=== PATIENT | female | born 1965 | race Hispanic/Latino ===

== ENCOUNTER 2016-07-16 20:45 | Emergency (ER) | payer MEDICAID, OTHER ==
[2016-07-16 20:58] VITALS: BP 129/81
--- NOTE | 2016-07-16 21:14 | EDM.PDOC ---
ED HISTORY OF PRESENT ILLNESS - General Chief Complaint: Chest Pain Stated Complaint: COUGH/CONGESTION Time Seen by Provider: 07/16/16 21:06 - History of Present Illness INITIAL COMMENTS - FREE TEXT/NARRATIVE: 51-year-old female presents emergency room with chest pain. This pain has been on-and-off for the last 3-4 days. The patient developed a cough prior to developing the chest pain and the cough certainly makes her chest pain worse. The patient has not had any fevers or chills. The patient does have history of atherosclerotic cardiovascular disease she has [address] Patient has nitroglycerin at home but has not felt like she needed to try using this to alleviate the chest pain. Chest pain is more right sided hurts with deep breathing and with coughing. The patient has not had any nausea or vomiting no diarrhea no other pains. The patient is pain free at this time. - Related Data Allergies/ADRs: Allergies Allergy/AdvReac Type Severity Reaction Status Date / Time No Known Allergies Allergy Verified 07/16/16 20:58 Home Meds: Home Meds Clopidogrel [Plavix] 75 mg PO DAILY 03/20/15 [History] Metoprolol Tartrate 50 mg PO BID 03/20/15 [History] Nitroglycerin [Nitrostat] 0.4 mg SL Q5M 03/20/15 [History] Simvastatin [Zocor] 80 mg PO BEDTIME 03/20/15 [History] SUMAtriptan [Imitrex] 50 mg PO Q2H PRN 09/04/15 [History] Sertraline [Zoloft] 50 mg PO DAILY 09/04/15 [History] Aspirin [Ecotrin] 325 mg PO DAILY 07/16/16 [History] Hydrochlorothiazide 25 mg PO DAILY 07/16/16 [History] Isosorbide Mononitrate [Isosorbide Mononitrate ER] 30 mg PO DAILY 07/16/16 [ History] Lisinopril 40 mg PO DAILY 07/16/16 [History] Nitroglycerin [Nitrostat] 0.4 mg SL Q5M 07/16/16 [History] Doxycycline Monohydrate 100 mg PO Q12H #14 capsule 07/17/16 [Rx] Past Medical History Cardiovascular History: Reports: CAD, High cholesterol, Hypertension, Stents Gastrointestinal History: Reports: Other (see below) Other Gastrointestinal History: Biliary stones ER RN History: Reports: Psychiatric History: Reports: Addiction - Infectious Disease History Infectious Disease History: Reports: Chicken pox, Measles, Mumps - Past Surgical History Cardiovascular Surgical History: Reports: Coronary artery stent Social & Family History - Family History Family Medical History: Noncontributory - Tobacco Use Smoking Status *Q: Current Every Day Smoker Years of Tobacco use: 45 Packs/Tins Daily: 0.3 - Caffeine Use Caffeine Use: Reports: Coffee - Alcohol Use Days Per Week of Alcohol Use: 1 Number of Drinks Per Day: 3 Total Drinks Per Week: 3 - Recreational Drug Use Recreational Drug Use: No Drug Use in Last 12 Months: No Recreational Drug Type: Reports: Heroin, Marijuana/Hashish, Cocaine Recreational Drug Use Frequency: Not Used In Over 6 Months - Living Situation & Occupation Living situation: Reports: single, alone Occupation: employed ED ROS GENERAL - Review of Systems Review Of Systems: See Below Constitutional: Reports: no symptoms HEENT: Reports: Rhinitis Respiratory: Reports: cough, sputum. Denies: shortness of breath, wheezing Cardiovascular: Reports: Chest pain. Denies: Dyspnea on exertion, Edema, Lightheadedness, Palpitations, Syncope Endocrine: Reports: no symptoms GI/Abdominal: Reports: No symptoms : Reports: no symptoms Neurological: Reports: no symptoms ED EXAM, GENERAL - Physical Exam Exam: See Below Exam Limited By: No limitations General Appearance: alert, no apparent distress, other (vital signs stable on telemetry she's having occasional unifocal PVCs) Head: atraumatic, normocephalic Neck: normal inspection, supple, non-tender, full range of motion Respiratory/Chest: no respiratory distress, lungs clear, normal breath sounds Cardiovascular: regular rate, rhythm, no edema, no murmur GI/Abdominal: normal bowel sounds, soft, non tender Back Exam: normal inspection. No: CVA tenderness (L), CVA tenderness (R) Extremities: normal inspection, no pedal edema Neurological: alert, oriented, normal cognition Psychiatric: normal affect, normal mood EKG INTERPRETATION EKG Date: 07/16/16 Rhythm: other (normal sinus rhythm with 2 unifocal PVCs) [place]: normal P-wave: present QRS: normal ST-T: normal QT: normal CT/PQ Interval: first degree AV block Comparison: no change EKG Interpretation Comments: abnormal EKG other than the PVCs no change from July of 2015 Course - Vital Signs Last Recorded V/S: Last Vital Signs Temp 37.3 C 07/16/16 20:53 Pulse 78 07/16/16 20:53 Resp 20 07/16/16 20:53 BP 129/81 07/16/16 20:53 Pulse Ox 97 07/16/16 23:08 - Orders/Labs/Meds Orders: Active Orders 24 hr Category Date Time Status EKG 12 Lead [EKG Documentation Completion] [RC] STAT Care 07/16/16 21:04 Active EKG Documentation Completion [RC] STAT Care 07/16/16 22:14 Active Chest 1V Frontal [CR] Stat Exams 07/16/16 21:10 Taken Doxycycline [Vibramycin] Med 07/16/16 23:58 Once 100 mg PO ONETIME ONE Labs: Laboratory Tests 07/16/16 07/16/16 07/16/16 Range/Units 21:10 21:10 21:10 WBC 15.55 H (3.98-10.04) K/mm3 RBC 4.31 (3.98-5.22) M/mm3 Hgb 13.8 (11.2-15.7) gm/L Hct 40.6 (34.1-44.9) % MCV 94.2 (79.4-94.8) fl MCH 32.0 (25.6-32.2) pg MCHC 34.0 (32.2-35.5) g/dl RDW Std Deviation 45.1 (36.4-46.3) fL Plt Count 356 (182-369) K/mm3 MPV 9.4 (9.4-12.3) fl Neutrophils % (Manual) 73 H (40-60) % Band Neutrophils % 0 (0-10) % Lymphocytes % (Manual) 18 L (20-40) % Atypical Lymphs % 0 % Monocytes % (Manual) 9 (2-10) % Eosinophils % (Manual) 0 L (0.7-5.8) % Basophils % (Manual) 0 L (0.1-1.2) Platelet Estimate Adequate Plt Morphology Comment Normal RBC Morph Comment Normal PT 10.0 (8.0-13.0) SECONDS INR 0.95 APTT 30 (22-36) SECONDS D-Dimer, Quantitative (0.19-0.59) mg/L Sodium 138 (136-145) mEq/L Potassium 3.6 (3.5-5.1) mEq/L Chloride 101 (98-107) mEq/L Carbon Dioxide 26 (21-32) mEq/L Anion Gap 14.6 (5-15) BUN 15 (7-18) mg/dL Creatinine 1.0 (0.55-1.02) mg/dL Est Cr Clr Drug Dosing 56.18 mL/min Estimated GFR (MDRD) 58 (>60) mL/min BUN/Creatinine Ratio 15.0 (14-18) Glucose 89 (74-106) mg/dL Calcium 8.6 (8.5-10.1) mg/dL Magnesium 1.7 L (1.8-2.4) mg/dl Total Bilirubin 0.3 (0.2-1.0) mg/dL AST 18 (15-37) U/L ALT 24 (14-59) U/L Alkaline Phosphatase 82 (46-116) U/L Troponin I < 0.017 (0.00-0.056) ng/mL Total Protein 7.2 (6.4-8.2) g/dl Albumin 3.6 (3.4-5.0) g/dl Globulin 3.6 gm/dL Albumin/Globulin Ratio 1.0 (1-2) 07/16/16 07/16/16 Range/Units 21:10 23:18 WBC (3.98-10.04) K/mm3 RBC (3.98-5.22) M/mm3 Hgb (11.2-15.7) gm/L Hct (34.1-44.9) % MCV (79.4-94.8) fl MCH (25.6-32.2) pg MCHC (32.2-35.5) g/dl RDW Std Deviation (36.4-46.3) fL Plt Count (182-369) K/mm3 MPV (9.4-12.3) fl Neutrophils % (Manual) (40-60) % Band Neutrophils % (0-10) % Lymphocytes % (Manual) (20-40) % Atypical Lymphs % % Monocytes % (Manual) (2-10) % Eosinophils % (Manual) (0.7-5.8) % Basophils % (Manual) (0.1-1.2) Platelet Estimate Plt Morphology Comment RBC Morph Comment PT (8.0-13.0) SECONDS INR APTT (22-36) SECONDS D-Dimer, Quantitative 0.25 (0.19-0.59) mg/L Sodium (136-145) mEq/L Potassium (3.5-5.1) mEq/L Chloride (98-107) mEq/L Carbon Dioxide (21-32) mEq/L Anion Gap (5-15) BUN (7-18) mg/dL Creatinine (0.55-1.02) mg/dL Est Cr Clr Drug Dosing mL/min Estimated GFR (MDRD) (>60) mL/min BUN/Creatinine Ratio (14-18) Glucose (74-106) mg/dL Calcium (8.5-10.1) mg/dL Magnesium (1.8-2.4) mg/dl Total Bilirubin (0.2-1.0) mg/dL AST (15-37) U/L ALT (14-59) U/L Alkaline Phosphatase (46-116) U/L Troponin I < 0.017 (0.00-0.056) ng/mL Total Protein (6.4-8.2) g/dl Albumin (3.4-5.0) g/dl Globulin gm/dL Albumin/Globulin Ratio (1-2) Meds: Medications Discontinued Medications Generic Name Dose Route Start Last Admin Trade Name Freq PRN Reason Stop Dose Admin Albuterol 6 gm 07/16/16 22:16 07/16/16 23:05 Proventil Hfa INH 07/16/16 22:17 2 puff ONETIME ONE Administration - Re-Assessments/Exams Free Text/Narrative Re-Assessment/Exam: 07/16/16 23:11 Laboratory evaluation unrevealing other than a white count of 15,073% segs no bandemia chemistries are normal including a troponin and a d-dimer d-dimer was checked because she was having atypical chest pain her pulse was normal her respiratory rate was normal. portable chest x-ray nondiagnostic no acute cardiopulmonary changes. The patient will be trialed on and albuterol MDI for her bronchitis with her prior cardiac history we will check a 2 hour troponin if this is negative anticipate discharge home with doxycycline and the albuterol MDI. 07/16/16 23:59 second troponin negative we'll discharge Departure - Departure Time of Disposition: 23:59 Disposition: Home, Self-Care 01 Clinical Impression: Bronchitis, Chest pain, atypical Prescriptions: Doxycycline Monohydrate 100 mg PO Q12H #14 capsule Forms: ED Department Discharge Additional Instructions: Return to emergency room if any questions or problems. Followup with your regular provider next week for recheck if needed. Use your albuterol inhaler 2 puffs every 4 hours while awake. You then started on doxycycline, this is an antibiotic take it in the morning in the evenings. Take your aspirin mid day in between your antibiotic doses so they do not interfere with the absorption of each other. - My Orders Last 24 Hours: My Active Orders 07/16/16 21:04 EKG 12 Lead [EKG Documentation Completion] [RC] STAT 07/16/16 21:10 Chest 1V Frontal [CR] Stat 07/16/16 22:14 EKG Documentation Completion [RC] STAT 07/16/16 23:58 Doxycycline [Vibramycin] 100 mg PO ONETIME ONE - Assessment/Plan Last 24 Hours: My Active Orders 07/16/16 21:04 EKG 12 Lead [EKG Documentation Completion] [RC] STAT 07/16/16 21:10 Chest 1V Frontal [CR] Stat 07/16/16 22:14 EKG Documentation Completion [RC] STAT 07/16/16 23:58 Doxycycline [Vibramycin] 100 mg PO ONETIME ONE
[2016-07-16] MEDS: Albuterol 6.7 GM Inhaler INH ONE (23:05)
[2016-07-17] MEDS: Doxycycline 100 MG Cap PO ONE (00:05)
--- NOTE | 2016-07-18 08:46 | CR ---
Chest: Portable view of the chest was obtained. Comparison: Previous chest x-ray of 07/26/15. Heart size is within normal limits. Mild tortuosity of the thoracic aorta is seen. Lungs are clear. Bony structures are grossly intact. Impression: 1. Nothing acute is seen on frontal chest x-ray. No significant change is seen from previous study. Diagnostic code #1
== END 2016-07-17 00:09 | disposition home or self-care (01) ==
LOC: JD.ED 20:45
DX: J40 Bronchitis, not specified as acute or chronic (principal); R07.89 Other chest pain; I10 Essential (primary) hypertension; I25.10 Atherosclerotic heart disease of native coronary artery without angina pectoris; E78.00 Pure hypercholesterolemia, unspecified; F17.210 Nicotine dependence, cigarettes, uncomplicated; Z79.82 Long term (current) use of aspirin; Z79.02 Long term (current) use of antithrombotics/antiplatelets; Z79.899 Other long term (current) drug therapy; Z95.5 Presence of coronary angioplasty implant and graft
CPT/HCPCS: 36415; 71010; 80053; 83735; 84484; 85025; 85379; 85610; 85730; 93005; 94664; 99285; A9270; 99283

== ENCOUNTER 2016-11-15 14:28 | Emergency (ER) | payer MEDICAID ==
[2016-11-15 14:38] VITALS: BP 134/76
[2016-11-15] MEDS ORDERED: Sodium Chloride 0.9% 10 ML Syringe FLUSH PRN (14:51)
[2016-11-15] MEDS ORDERED: Sodium Chloride 0.9% 1,000 ML IV ONE (14:52)
--- NOTE | 2016-11-15 14:58 | EDM.PDOC ---
ED HPI GENERAL MEDICAL PROBLEM - General Chief Complaint: Respiratory Problem Stated Complaint: SOB Time Seen by Provider: 11/15/16 14:40 Source of Information: Reports: Patient History Limitations: Reports: No Limitations - History of Present Illness INITIAL COMMENTS - FREE TEXT/NARRATIVE: Patient is a 51-year-old female presents ED complaining of intermittent chest pain to the inferior border of the right left rib cage worse with taking a deep breath, movements, lifting, and palpation. Patient states she's had off and on symptoms throughout the day today. She questions that she may have overdid herself by lifting multiple heavy items assisting with moving her daughter into a different residence. Pain is described as a sharp sensation that fluctuates from right to left side. Patient is concerned this may related to her heart since she does have a history of coronary disease with stent placements into the left coronary. Patient states symptoms she is currently experiencing are way different than previous MIs. Last ME was approximate one year ago with 3 stents placed. She denies any worsening shortness of breath, nausea/vomiting, dizziness, syncope, fevers, dysuria, diarrhea, as soon better questional ingestion of bad food, or recent out of country travel, blood in her stool, or dark tarry stools. She has no history of kidney stones. Gallbladder remains in place. Does not worsen with eating of foods. Past medical history: Coronary disease, ME 2016, hypertension Current medications: See list. Patient does smoke parceling 7 cigarettes per day. Denies alcohol or recreational drug use. No history of PE or DVT. Right Upper Abdominal Pain Score (Numeric/FACES): 7 - Related Data Allergies Allergy/AdvReac Type Severity Reaction Status Date / Time No Known Allergies Allergy Verified 11/15/16 14:37 Home Meds: Home Meds Clopidogrel [Plavix] 75 mg PO DAILY 03/20/15 [History] Metoprolol Tartrate 50 mg PO BID 03/20/15 [History] Nitroglycerin [Nitrostat] 0.4 mg SL Q5M 03/20/15 [History] Simvastatin [Zocor] 80 mg PO BEDTIME 03/20/15 [History] SUMAtriptan [Imitrex] 50 mg PO Q2H PRN 09/04/15 [History] Sertraline [Zoloft] 50 mg PO DAILY 09/04/15 [History] Aspirin [Ecotrin] 325 mg PO DAILY 07/16/16 [History] Hydrochlorothiazide 25 mg PO DAILY 07/16/16 [History] Isosorbide Mononitrate [Isosorbide Mononitrate ER] 30 mg PO DAILY 07/16/16 [ History] Lisinopril 40 mg PO DAILY 07/16/16 [History] Nitroglycerin [Nitrostat] 0.4 mg SL Q5M 07/16/16 [History] Past Medical History Cardiovascular History: Reports: CAD, High Cholesterol, Hypertension, Stents Gastrointestinal History: Reports: Other (See Below) Other Gastrointestinal History: Biliary stones [employer] History: Reports: Psychiatric History: Reports: Addiction - Infectious Disease History Infectious Disease History: Reports: Chicken Pox, Measles, Mumps - Past Surgical History Cardiovascular Surgical History: Reports: Coronary Artery Stent Female Surgical History: Reports: Other (See Below) Social & Family History - Family History Family Medical History: Noncontributory - Tobacco Use Smoking Status *Q: Current Every Day Smoker Years of Tobacco use: 45 Packs/Tins Daily: 0.3 - Caffeine Use Caffeine Use: Reports: Coffee - Alcohol Use Days Per Week of Alcohol Use: 1 Number of Drinks Per Day: 3 Total Drinks Per Week: 3 - Recreational Drug Use Recreational Drug Use: No Drug Use in Last 12 Months: No Recreational Drug Type: Reports: Heroin, Marijuana/Hashish, Cocaine Recreational Drug Use Frequency: Not Used In Over 6 Months - Living Situation & Occupation Living situation: Reports: Single, Alone Occupation: Employed ED ROS GENERAL - Review of Systems Review Of Systems: See Below Respiratory: Reports: Cough (chronic), Hemoptysis. Denies: Shortness of Breath Cardiovascular: Reports: Chest Pain. Denies: Dyspnea on Exertion, Lightheadedness, Palpitations GI/Abdominal: Denies: Abdominal Pain, Black Stool, Bloody Stool, Constipation, Diarrhea, Decreased Appetite, Difficulty Swallowing, Hematemesis, Hematochezia, Melena, Nausea, Vomiting : Denies: Dysuria Musculoskeletal: Denies: Neck Pain, Shoulder Pain, Arm Pain, Back Pain Skin: Reports: No Symptoms Neurological: Reports: No Symptoms ED EXAM, GENERAL - Physical Exam Exam: See Below Exam Limited By: No Limitations General Appearance: Alert, WD/WN, No Apparent Distress Eye Exam: Bilateral Eye: PERRL Ears: Hearing Grossly Normal Nose: Normal Inspection Throat/Mouth: Normal Inspection, Normal Oropharynx, Normal Voice, No Airway Compromise Neck: Normal Inspection, Supple, Non-Tender, Full Range of Motion Respiratory/Chest: No Respiratory Distress, Lungs Clear, Normal Breath Sounds, No Accessory Muscle Use, Other (Tenderness to the inferior border of the right and left lower rib cage with palpation and also taking a deep breath. No bony abnormalities. No bruising, swelling, or other concerns for injury.) Cardiovascular: Normal Peripheral Pulses, Regular Rate, Rhythm, No Murmur Peripheral Pulses: 2+: Radial (L), Radial (R) GI/Abdominal: Normal Bowel Sounds, Soft, Non-Tender, No Organomegaly, No Distention Back Exam: Normal Inspection. No: CVA Tenderness (L), CVA Tenderness (R) Extremities: Normal Inspection, Normal Range of Motion, Non-Tender, No Pedal Edema, Normal Capillary Refill Neurological: Alert, Oriented, CN II-XII Intact, Normal Cognition, No Motor/ Sensory Deficits Psychiatric: Normal Affect, Normal Mood Skin Exam: Warm, Dry, Intact, Normal Color Course - Vital Signs Last Recorded V/S: Last Vital Signs Temp 97.7 F 11/15/16 14:35 Pulse 74 11/15/16 14:35 Resp 21 H 11/15/16 14:35 BP 134/76 11/15/16 14:35 Pulse Ox 95 11/15/16 14:35 - Orders/Labs/Meds Orders: Active Orders 24 hr Category Date Time Status Cardiac Education [RC] Click To Edit Care 11/15/16 14:51 Active Cardiac Monitoring [RC] . DIRECTED Care 11/15/16 14:51 Active EKG 12 Lead [EKG Documentation Completion] [RC] STAT Care 11/15/16 15:12 Active Peripheral IV Care [RC] . DIRECTED Care 11/15/16 14:52 Active Chest 1V Frontal [CR] Stat Exams 11/15/16 14:54 Taken Peripheral IV Insertion Adult [OM.PC] Routine Oth 11/15/16 14:51 Ordered Labs: Laboratory Tests 11/15/16 11/15/16 11/15/16 Range/Units 15:10 15:10 15:10 WBC 8.24 (3.98-10.04) K/mm3 RBC 4.24 (3.98-5.22) M/mm3 Hgb 13.6 (11.2-15.7) gm/L Hct 39.8 (34.1-44.9) % MCV 93.9 (79.4-94.8) fl MCH 32.1 (25.6-32.2) pg MCHC 34.2 (32.2-35.5) g/dl RDW Std Deviation 45.9 (36.4-46.3) fL Plt Count 377 H (182-369) K/mm3 MPV 9.2 L (9.4-12.3) fl Neut % (Auto) 57.4 (34.0-71.1) % Lymph % (Auto) 31.4 (19.3-51.7) % [place] % (Auto) 6.9 (4.7-12.5) % Eos % (Auto) 4.1 (0.7-5.8) Baso % (Auto) 0.1 (0.1-1.2) % Neut # (Auto) 4.72 (1.56-6.13) K/mm3 Lymph # (Auto) 2.59 (1.18-3.74) K/mm3 [place] # (Auto) 0.57 H (0.24-0.36) K/mm3 Eos # (Auto) 0.34 (0.04-0.36) K/mm3 Baso # (Auto) 0.01 (0.01-0.08) K/mm3 PT 10.5 (8.0-13.0) SECONDS INR 0.97 APTT 29 (22-36) SECONDS Sodium 137 (136-145) mEq/L Potassium 3.1 L (3.5-5.1) mEq/L Chloride 102 (98-107) mEq/L Carbon Dioxide 25 (21-32) mEq/L Anion Gap 13.1 (5-15) BUN 20 H (7-18) mg/dL Creatinine 1.1 H (0.55-1.02) mg/dL Est Cr Clr Drug Dosing 51.07 mL/min Estimated GFR (MDRD) 52 (>60) mL/min BUN/Creatinine Ratio 18.2 H (14-18) Glucose 91 (74-106) mg/dL Calcium 8.8 (8.5-10.1) mg/dL Magnesium 1.8 (1.8-2.4) mg/dl Total Bilirubin 0.5 (0.2-1.0) mg/dL AST 29 (15-37) U/L ALT 33 (14-59) U/L Alkaline Phosphatase 70 (46-116) U/L Creatine Kinase (26-192) U/L CK-MB (CK-2) (0-3.6) ng/ml Troponin I < 0.017 (0.00-0.056) ng/mL Total Protein 7.5 (6.4-8.2) g/dl Albumin 3.7 (3.4-5.0) g/dl Globulin 3.8 gm/dL Albumin/Globulin Ratio 1.0 (1-2) Amylase 36 (25-115) U/L Lipase 130 (73-393) U/L 11/15/16 11/15/16 Range/Units 18:10 18:10 WBC (3.98-10.04) K/mm3 RBC (3.98-5.22) M/mm3 Hgb (11.2-15.7) gm/L Hct (34.1-44.9) % MCV (79.4-94.8) fl MCH (25.6-32.2) pg MCHC (32.2-35.5) g/dl RDW Std Deviation (36.4-46.3) fL Plt Count (182-369) K/mm3 MPV (9.4-12.3) fl Neut % (Auto) (34.0-71.1) % Lymph % (Auto) (19.3-51.7) % [place] % (Auto) (4.7-12.5) % Eos % (Auto) (0.7-5.8) Baso % (Auto) (0.1-1.2) % Neut # (Auto) (1.56-6.13) K/mm3 Lymph # (Auto) (1.18-3.74) K/mm3 [place] # (Auto) (0.24-0.36) K/mm3 Eos # (Auto) (0.04-0.36) K/mm3 Baso # (Auto) (0.01-0.08) K/mm3 PT (8.0-13.0) SECONDS INR APTT (22-36) SECONDS Sodium (136-145) mEq/L Potassium (3.5-5.1) mEq/L Chloride (98-107) mEq/L Carbon Dioxide (21-32) mEq/L Anion Gap (5-15) BUN (7-18) mg/dL Creatinine (0.55-1.02) mg/dL Est Cr Clr Drug Dosing mL/min Estimated GFR (MDRD) (>60) mL/min BUN/Creatinine Ratio (14-18) Glucose (74-106) mg/dL Calcium (8.5-10.1) mg/dL Magnesium (1.8-2.4) mg/dl Total Bilirubin (0.2-1.0) mg/dL AST (15-37) U/L ALT (14-59) U/L Alkaline Phosphatase (46-116) U/L Creatine Kinase 570 H (26-192) U/L CK-MB (CK-2) 8.6 H (0-3.6) ng/ml Troponin I < 0.017 (0.00-0.056) ng/mL Total Protein (6.4-8.2) g/dl Albumin (3.4-5.0) g/dl Globulin gm/dL Albumin/Globulin Ratio (1-2) Amylase (25-115) U/L Lipase (73-393) U/L Meds: Medications Discontinued Medications Generic Name Dose Route Start Last Admin Trade Name Freq PRN Reason Stop Dose Admin Sodium Chloride 1,000 mls @ 125 mls/hr 11/15/16 14:52 11/15/16 16:02 Normal Saline IV 11/15/16 22:51 250 mls/hr ASDIRECTED ONE Infusion Sodium Chloride 1,000 mls @ 250 mls/hr 11/15/16 16:00 Normal Saline IV ASDIRECTED FLAVIO Sodium Chloride 10 ml 11/15/16 14:51 11/15/16 15:10 Saline Flush FLUSH 10 ml ASDIRECTED PRN Administration Keep Vein Open - Re-Assessments/Exams Free Text/Narrative Re-Assessment/Exam: I Patient had mentioned she had assisted her daughter in moving yesterday and may have overdid it. Pain she is currently experiencing is located to the inferior border of the right and left rib cage. Pain is worse with taking a deep breath and also with palpation. She has minimal pain to the abdomen with palpation most of it is along the bony structures of the ribs. Do believe this is most likely related to overdoing it with lifting yesterday. Patient is concerned it is related to her heart and does have a history of coronary artery disease requiring stent placement to the LAD and also PDA. Thus will obtain labs to rule out cardiac moment. Initial labs and studies include: CBC, chem 14, troponin, PTT, PTT/INR, lipase, amylase, and chest x-ray two-view. EKG revealed sinus rhythm at a rate of [address] changes noted. Chest x-ray revealed: No acute abnormalities noted. 1535 Reassessment, patient's symptoms remained unchanged. 11/15/16 16:00 Labs Reviewed: Sodium 137, potassium 3.1, creatinine 1.1, albumin 20, I and gap is 13.1, troponin less than 0.017, crit kinase is 235, amylase 36 and lipase 1:30. CBC is essentially normal. Will not obtain a d- dimer. Patient has no shortness of breath. Vital signs are stable. She has no history of DVT or PE. It appears discomfort is more likely associated with over doing herself with lifting. 11/15/16 16:03 Will obtain troponin and CKMB 3 hours from previous blood work. If negative will discharge home. 11/15/16 19:01 second troponin was negative. CK-MB was elevated 8.6. Will order total CPK. Patient is on a statin. 11/15/16 19:43 CPK 570. Patient is stable with no new symptoms or changes. She is ready to be discharged home. Do believe current complaint is muscle skeletal related. Will discharge patient home with instructions as documented. Departure - Departure Time of Disposition: 19:24 Disposition: Home, Self-Care 01 Condition: Good Clinical Impression: Hypokalemia, Rib pain, Chest pain, muscular, Atypical chest pain - Discharge Information Instructions: Hypokalemia Referrals: Ulises Lemus MD [Primary Care Provider] - Forms: ED Department Discharge Additional Instructions: Refrain from any activities that cause worsening pain. Take ibuprofen and Tylenol in alternating fashion for discomfort. Utilize warm compresses to the affected area as needed. Follow-up with your primary care provider this coming week for reevaluation if symptoms persist. You should see improvement to your symptoms in the next 2-3 days. Return to the ED for any new or worsening symptoms. Continue taking all your home medications as prescribed. - My Orders Last 24 Hours: My Active Orders 11/15/16 14:51 Cardiac Education [RC] Click To Edit Cardiac Monitoring [RC] . DIRECTED Peripheral IV Insertion Adult [OM.PC] Routine 11/15/16 14:52 Peripheral IV Care [RC] . DIRECTED 11/15/16 14:54 Chest 1V Frontal [CR] Stat 11/15/16 15:12 EKG 12 Lead [EKG Documentation Completion] [RC] STAT - Assessment/Plan Last 24 Hours: My Active Orders 11/15/16 14:51 Cardiac Education [RC] Click To Edit Cardiac Monitoring [RC] . DIRECTED Peripheral IV Insertion Adult [OM.PC] Routine 11/15/16 14:52 Peripheral IV Care [RC] . DIRECTED 11/15/16 14:54 Chest 1V Frontal [CR] Stat 11/15/16 15:12 EKG 12 Lead [EKG Documentation Completion] [RC] STAT
[2016-11-15] MEDS ORDERED: Sodium Chloride 0.9% 1,000 ML IV SCH (16:00)
--- NOTE | 2016-11-16 17:55 | CR ---
Chest: Portable view of the chest was obtained. Comparison: Previous chest x-ray of 07/16/16. Heart size appears within normal limits for portable technique. Mild tortuosity of the thoracic aorta is seen. Minimal atelectasis is noted within the lateral left costophrenic angle. Lungs otherwise are clear. Minimal calcification is seen off the right shoulder compatible with calcific tendinitis. Impression: 1. Incidental findings. Nothing acute is appreciated on portable chest x-ray. Diagnostic code #2
== END 2016-11-15 19:55 | disposition home or self-care (01) ==
LOC: JD.ED 14:28
DX: R07.81 Pleurodynia (principal); R07.89 Other chest pain; E87.6 Hypokalemia; F17.210 Nicotine dependence, cigarettes, uncomplicated; I10 Essential (primary) hypertension; I25.10 Atherosclerotic heart disease of native coronary artery without angina pectoris; I25.2 Old myocardial infarction; E78.00 Pure hypercholesterolemia, unspecified; Z95.5 Presence of coronary angioplasty implant and graft; Z79.82 Long term (current) use of aspirin; Z79.02 Long term (current) use of antithrombotics/antiplatelets; Z79.899 Other long term (current) drug therapy
CPT/HCPCS: 36415; 71010; 80053; 82150; 82550; 82553; 83690; 83735; 84484; 85025; 85610; 85730; 93005; 96360; 96361; 99284; J7040; J7050

== ENCOUNTER 2017-06-15 06:37 | Day surgery (SDC) | payer MEDICAID ==
[2017-06-15] MEDS ORDERED: Lactated Ringers 1,000 ML IV SCH (07:00)
[2017-06-15] MEDS ORDERED: Sodium Chloride 0.9% 10 ML Syringe FLUSH PRN (07:00)
[2017-06-15] MEDS ORDERED: Lidocaine 1%/Sod Bicarbonate in NS 8.4% 1 ML Syringe IDERM PRN (07:00)
[2017-06-15] MEDS ORDERED: Propofol 200 MG/20 ML SDV ONE ×2 (07:12→08:38)
[2017-06-15] MEDS ORDERED: fentaNYL 100 MCG/2 ML SDV ONE (07:13)
[2017-06-15] MEDS ORDERED: Lidocaine 1% 4 ML ONE (07:13)
--- NOTE | 2017-06-15 07:27 | PCM.PREANE ---
Preanesthetic Assessment - Procedure Proposed Procedure: Screening colonoscopy - Anesthesia/Transfusion/Family Hx Anesthesia History: Prior Anesthesia Without Reaction Family History of Anesthesia Reaction: No Transfusion History: No Prior Transfusion(s) - Review of Systems General: No Symptoms Pulmonary: Other (UZIEL ) Cardiovascular: Other (CAD, HTN, HLD, coronary stents x4, hx of NSTEMI, EF 65-70 %, on plavix) Gastrointestinal: No Symptoms Neurological: No Symptoms Other: Reports: Easy Bleeding, Easy Bruising - Physical Assessment NPO Status Date: 06/14/17 NPO Status Time: 22:00 Pulse: 60 O2 Sat by Pulse Oximetry: 97 Respiratory Rate: 16 Blood Pressure: 133/80 Temperature: 36.8 C Height: 1.6 m Weight: 101.151 kg ASA Class: 3 Mental Status: Alert & Oriented x3 Airway Class: Mallampati = 1 Dentition: Reports: Edentulous Thyro-Mental Finger Breadths: 3 Mouth Opening Finger Breadths: 3 ROM/Head Extension: Full Lungs: Clear to Auscultation, Normal Respiratory Effort Cardiovascular: Regular Rate, Regular Rhythm - Allergies Allergies/Adverse Reactions: Allergies Allergy/AdvReac Type Severity Reaction Status Date / Time No Known Allergies Allergy Verified 06/12/17 13:30 - Blood Blood Available: No Product(s) Available: None - Acknowledgements Anesthesia Type Planned: MAC Pt an Appropriate Candidate for the Planned Anesthesia: Yes Alternatives and Risks of Anesthesia Discussed w Pt/Guardian: Yes Pt/Guardian Understands and Agrees with Anesthesia Plan: Yes PreAnesthesia Questionnaire HEENT History: Reports: Other (See Below) Other HEENT History: no teeth Cardiovascular History: Reports: CAD, High Cholesterol, Hypertension, Stents, Other (See Below) Other Cardiovascular History: PCI, NSTEMI Respiratory History: Reports: None Gastrointestinal History: Reports: None Other Gastrointestinal History: Biliary stones Genitourinary History: Reports: Other (See Below) Other Genitourinary History: acute kidney failure, polyuria, polydipsia 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 (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 Below) Other OB/BYN History: mondor's disease of breast, lumpectomy Musculoskeletal History: Reports: Arthritis, Other (See Below) Other Musculoskeletal History: right shoulder pain Neurological History: Reports: Headaches, Chronic Psychiatric History: Reports: Depression Endocrine/Metabolic History: Reports: None Hematologic History: Reports: None Immunologic History: Reports: None Oncologic (Cancer) History: Reports: None Dermatologic History: Reports: None - Infectious Disease History Infectious Disease History: Reports: Chicken Pox, Measles, Mumps - Past Surgical History Cardiovascular Surgical History: Reports: None Respiratory Surgical History: Reports: None GI Surgical History: Reports: None Female Surgical History: Reports: None Male Surgical History: Reports: None Endocrine Surgical History: Reports: None Neurological Surgical History: Reports: None Oncologic Surgical History: Reports: None Dermatological Surgical History: Reports: None - SUBSTANCE USE Smoking Status *Q: Current Every Day Smoker Tobacco Use Within Last Twelve Months: Cigarettes Days Per Week of Alcohol Use: 1 Number of Drinks Per Day: 3 Total Drinks Per Week: 3 Recreational Drug Use History: No Recreational Drug Type: Reports: Heroin, Marijuana/Hashish, Cocaine - HOME MEDS Home Medications: Home Meds Clopidogrel [Plavix] 75 mg PO DAILY 03/20/15 [History] Metoprolol Tartrate 50 mg PO BID 03/20/15 [History] Simvastatin [Zocor] 80 mg PO BEDTIME 03/20/15 [History] SUMAtriptan [Imitrex] 50 mg PO Q2H PRN 09/04/15 [History] Aspirin [Ecotrin] 325 mg PO DAILY 07/16/16 [History] Hydrochlorothiazide 25 mg PO DAILY 07/16/16 [History] Isosorbide Mononitrate [Isosorbide Mononitrate ER] 30 mg PO DAILY 07/16/16 [ History] Lisinopril 40 mg PO DAILY 07/16/16 [History] Nitroglycerin [Nitrostat] 0.4 mg SL Q5M 07/16/16 [History] Hydrocodone/Acetaminophen [[place] 5-325] 1 tab PO Q6H PRN 06/12/17 [History] Nabumetone [Relafen] 500 mg PO BID 06/12/17 [History] Sulfamethoxazole/Trimethoprim [Sulfamethoxazole-Tmp Ds Tablet] 1 tab PO BID [History] traMADol [Ultram] 50 mg PO TID PRN 06/12/17 [History] - CURRENT (IN HOUSE) MEDS Current Meds: Current Medications Lactated Ringer's (Ringers, Lactated) 1,000 mls @ 125 mls/hr IV ASDIRECTED FLAVIO Stop: 06/15/17 23:00 Last Admin: 06/15/17 07:10 Dose: 125 mls/hr Lidocaine/Sodium Bicarbonate (Buffered Lidocaine 1% In Ns 8.4%) 0.25 ml IDERM ONETIME PRN PRN Reason: Prior to IV Start Stop: 06/15/17 18:00 Last Admin: 06/15/17 07:10 Dose: 0.25 ml Sodium Chloride (Saline Flush) 10 ml FLUSH ASDIRECTED PRN PRN Reason: Keep Vein Open Stop: 06/15/17 18:00 Discontinued Medications Fentanyl (Sublimaze) Confirm Administered Dose 100 mcg .ROUTE .STK-MED ONE Stop: 06/15/17 07:14 Lidocaine HCl (Xylocaine-Mpf 1%) Confirm Administered Dose 4 mls @ as directed .ROUTE .STK-MED ONE Stop: 06/15/17 07:14 Propofol (Diprivan 20 Ml) Confirm Administered Dose 200 mg .ROUTE .STK-MED ONE Stop: 06/15/17 07:13
--- NOTE | 2017-06-15 08:55 | PCM48HPAN ---
Post Anesthesia Note - EVALUATION WITHIN 48HRS OF ANESTHETIC Vital Signs in Normal Range: Yes Patient Participated in Evaluation: Yes Respiratory Function Stable: Yes Airway Patent: Yes Cardiovascular Function Stable: Yes Hydration Status Stable: Yes Pain Control Satisfactory: Yes Nausea and Vomiting Control Satisfactory: Yes Mental Status Recovered: Yes
--- NOTE | 2017-06-15 08:56 | PCM.OPNOTE ---
- General Post-Op/Procedure Note Date of Surgery/Procedure: 06/15/17 Operative Procedure(s): colonosocopy to ileiocecal valve Pre Op Diagnosis: screening colonosocopy Post-Op Diagnosis: Same Anesthesia Technique: MAC Primary Surgeon: Tee Sharp EBL in mLs: 0 Complications: None Condition: Good
[2017-06-15 09:01] VITALS: BP 133/86
--- NOTE | 2017-06-15 11:45 | OR ---
DATE OF OPERATION: 06/15/2017 SURGEON: Tee Sharp MD PREOPERATIVE DIAGNOSIS: Screening colonoscopy. POSTOPERATIVE DIAGNOSIS: Screening colonoscopy. OPERATION PERFORMED: Colonoscopy to the ileocecal valve. FINDINGS: Moderate diverticulosis of sigmoid colon and some in the transverse colon. The cecum had tenacious stool attached to the surface that could not be irrigated off, and the scope could not be advanced into the cecum, and the cecum was not clearly and totally seen. Prep was poor around the cecum. There were no angiodysplasias, neoplasias, large tumor masses, ulcerations, or notable hemorrhoids seen. ANESTHESIA: Done under IV sedation. DESCRIPTION OF PROCEDURE: The patient was taken to the endoscopy room, placed in a supine position, connected to monitoring equipment, IV sedation was given, and the patient was placed in left lateral position. Perianal area was unremarkable. Rectal exam showed good sphincter tone. A video Olympus colonoscope was then introduced into the rectum and threaded up without problem to the ileocecal valve, could not be advanced in the cecum. The prep was poor around the cecum and the ascending colon, where tenacious stool was attached to the wall of the colon in that area and could not be irrigated free. I was not able to advance the tip of the scope into the cecum. The scope was then slowly withdrawn showing good prep in the transverse colon, descending colon, sigmoid colon, and rectum. Retroflexed view was not done. The scope was then slowly withdrawn showing these areas of the colon. The patient tolerated the procedure, sent to recovery room in a stable condition, and will be followed up as needed in the clinic. ESTIMATED BLOOD LOSS: MMODAL /[id number]
== END 2017-06-15 09:30 | disposition home or self-care (01) ==
LOC: JD.SDS 06:37
PROVIDERS: ATTEND Surgery
DX: Z12.11 Encounter for screening for malignant neoplasm of colon (principal); K57.30 Diverticulosis of large intestine without perforation or abscess without bleeding; I25.10 Atherosclerotic heart disease of native coronary artery without angina pectoris; I10 Essential (primary) hypertension; E78.5 Hyperlipidemia, unspecified; I25.2 Old myocardial infarction; M19.90 Unspecified osteoarthritis, unspecified site; F32.9 Major depressive disorder, single episode, unspecified; F17.210 Nicotine dependence, cigarettes, uncomplicated; N39.0 Urinary tract infection, site not specified; Z79.01 Long term (current) use of anticoagulants; Z79.2 Long term (current) use of antibiotics; Z79.899 Other long term (current) drug therapy; Z95.5 Presence of coronary angioplasty implant and graft; Z90.12 Acquired absence of left breast and nipple; Z98.890 Other specified postprocedural states
CPT/HCPCS: 45378; J3010; J7120; 00812; J2001; J2704

== ENCOUNTER 2018-08-12 11:10 | Emergency (ER) | payer SELFPAY ==
[2018-08-12 11:19] VITALS: BP 110/75
--- NOTE | 2018-08-12 11:34 | EDM.PDOC ---
ED HPI GENERAL MEDICAL PROBLEM - General Chief Complaint: Chest Pain Stated Complaint: CHEST PAIN Time Seen by Provider: 08/12/18 11:31 Source of Information: Reports: Patient, RN Notes Reviewed - History of Present Illness INITIAL COMMENTS - FREE TEXT/NARRATIVE: 53-year-old lady has been having left anterior chest pain since yesterday about 24 hours ago. Scribes this as an ache left chest with some radiation toward her left shoulder. She does have history of coronary artery disease, has had "5 previous MIs" has 3 or 4 stents. She is not short of breath and not having any difficulty breathing. She states she has been moving this past week lifting and carrying a lot of various items. The pain is worse with deep breathing and certain types of motion. No Abdominal pain nausea vomiting or diaphoresis. She is on aspirin and Plavix in addition to her other medications. Chest Pain Score (Numeric/FACES): 8 - Related Data Allergies Allergy/AdvReac Type Severity Reaction Status Date / Time No Known Allergies Allergy Verified 08/12/18 11:19 Home Meds: Home Meds Clopidogrel [Plavix] 75 mg PO DAILY 03/20/15 [History] Metoprolol Tartrate 50 mg PO BID 03/20/15 [History] Simvastatin [Zocor] 80 mg PO BEDTIME 03/20/15 [History] SUMAtriptan [Imitrex] 50 mg PO Q2H PRN 09/04/15 [History] Aspirin [Ecotrin] 325 mg PO DAILY 07/16/16 [History] Hydrochlorothiazide 25 mg PO DAILY 07/16/16 [History] Isosorbide Mononitrate [Isosorbide Mononitrate ER] 30 mg PO DAILY 07/16/16 [ History] Lisinopril 40 mg PO DAILY 07/16/16 [History] Nitroglycerin [Nitrostat] 0.4 mg SL Q5M 07/16/16 [History] Hydrocodone/Acetaminophen [[place] 5-325] 1 tab PO Q6H PRN 06/12/17 [History] Past Medical History HEENT History: Reports: Other (See Below) Other HEENT History: no teeth Cardiovascular History: Reports: CAD, High Cholesterol, Hypertension, Stents, Other (See Below) Other Cardiovascular History: PCI, NSTEMI x9 Respiratory History: Reports: None Gastrointestinal History: Reports: None Other Gastrointestinal History: Biliary stones Genitourinary History: Reports: Other (See Below) Other Genitourinary History: acute kidney failure, polyuria, polydipsia 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 BAFFLE INSTALLER History: mondor's disease of breast, lumpectomy Musculoskeletal History: Reports: Arthritis, Other (See Below) Other Musculoskeletal History: right shoulder pain Neurological History: Reports: Headaches, Chronic Psychiatric History: Reports: Depression Endocrine/Metabolic History: Reports: None Hematologic History: Reports: None Immunologic History: Reports: None Oncologic (Cancer) History: Reports: None Dermatologic History: Reports: None - Infectious Disease History Infectious Disease History: Reports: Chicken Pox, Measles, Mumps - Past Surgical History Cardiovascular Surgical History: Reports: None Respiratory Surgical History: Reports: None GI Surgical History: Reports: None Female Surgical History: Reports: None Endocrine Surgical History: Reports: None Neurological Surgical History: Reports: None Oncologic Surgical History: Reports: None Dermatological Surgical History: Reports: None Social & Family History - Family History Family Medical History: Noncontributory - Tobacco Use Smoking Status *Q: Current Every Day Smoker Years of Tobacco use: 40 Packs/Tins Daily: 0.2 - Caffeine Use Caffeine Use: Reports: Coffee - Recreational Drug Use Recreational Drug Use: No - Living Situation & Occupation Living situation: Reports: Single, Alone Occupation: Employed ED ROS GENERAL - Review of Systems Review Of Systems: See Below Constitutional: Denies: Fever, Chills, Diaphoresis HEENT: Denies: Sinus Problem, Throat Pain Respiratory: Reports: Cough. Denies: Shortness of Breath, Sputum (Occasional) Cardiovascular: Reports: Chest Pain GI/Abdominal: Denies: Abdominal Pain, Nausea, Vomiting Musculoskeletal: Reports: Shoulder Pain (Left-sided). Denies: Neck Pain, Leg Pain Skin: Reports: No Symptoms Neurological: Reports: No Symptoms ED EXAM, GENERAL - Physical Exam Exam: See Below General Appearance: Alert, No Apparent Distress Eye Exam: Bilateral Eye: PERRL Throat/Mouth: Normal Inspection, Normal Oropharynx Head: Atraumatic Neck: Supple, Other Respiratory/Chest: No Respiratory Distress (No JVD), Lungs Clear, Normal Breath Sounds, Other (Tender left sternal border, left upper anterior chest) Cardiovascular: Regular Rate, Rhythm GI/Abdominal: Soft, Non-Tender. No: Guarding Extremities: Other (Mild tenderness left anterior shoulder, no warmth, swelling or erythema) Neurological: Alert, Oriented, No Motor/Sensory Deficits Skin Exam: Warm, Dry, Normal Color EKG INTERPRETATION EKG Date: 08/12/18 Rhythm: NSR Ubly: Normal P-Wave: Present QRS: Normal ST-T: Normal Course - Vital Signs Last Recorded V/S: Last Vital Signs Temp 96.9 F 08/12/18 11:16 Pulse 63 08/12/18 11:16 Resp 20 08/12/18 11:16 BP 110/75 08/12/18 11:16 Pulse Ox 95 08/12/18 11:16 - Orders/Labs/Meds Orders: Active Orders 24 hr Category Date Time Status EKG Documentation Completion [RC] ASDIRECTED Care 08/12/18 11:37 Active Peripheral IV Care [RC] . DIRECTED Care 08/12/18 11:39 Active Chest 1V Frontal [CR] Stat Exams 08/12/18 11:42 Taken Peripheral IV Insertion Adult [OM.PC] Stat Oth 08/12/18 11:39 Ordered EKG 12 Lead [EK] Stat Ther 08/12/18 11:37 Ordered Labs: Laboratory Tests 08/12/18 08/12/18 Range/Units 11:22 11:22 WBC 7.75 (3.98-10.04) K/mm3 RBC 4.37 (3.98-5.22) M/mm3 Hgb 14.1 (11.2-15.7) gm/L Hct 41.5 (34.1-44.9) % MCV 95.0 H (79.4-94.8) fl MCH 32.3 H (25.6-32.2) pg MCHC 34.0 (32.2-35.5) g/dl RDW Std Deviation 46.5 H (36.4-46.3) fL Plt Count 446 H (182-369) K/mm3 MPV 9.2 L (9.4-12.3) fl Neut % (Auto) 56.9 (34.0-71.1) % Lymph % (Auto) 31.7 (19.3-51.7) % [place] % (Auto) 7.2 (4.7-12.5) % Eos % (Auto) 3.7 (0.7-5.8) Baso % (Auto) 0.4 (0.1-1.2) % Neut # (Auto) 4.40 (1.56-6.13) K/mm3 Lymph # (Auto) 2.46 (1.18-3.74) K/mm3 [place] # (Auto) 0.56 H (0.24-0.36) K/mm3 Eos # (Auto) 0.29 (0.04-0.36) K/mm3 Baso # (Auto) 0.03 (0.01-0.08) K/mm3 Sodium 140 (136-145) mEq/L Potassium 3.6 (3.5-5.1) mEq/L Chloride 102 (98-107) mEq/L Carbon Dioxide 29 (21-32) mEq/L Anion Gap 12.6 (5-15) BUN 26 H (7-18) mg/dL Creatinine 1.3 H (0.55-1.02) mg/dL Est Cr Clr Drug Dosing 54.65 mL/min Estimated GFR (MDRD) 43 (>60) mL/min BUN/Creatinine Ratio 20.0 H (14-18) Glucose 77 (74-106) mg/dL Calcium 9.5 (8.5-10.1) mg/dL Total Bilirubin 0.4 (0.2-1.0) mg/dL AST 29 (15-37) U/L ALT 30 (14-59) U/L Alkaline Phosphatase 88 (46-116) U/L Troponin I < 0.017 (0.00-0.056) ng/mL Total Protein 8.0 (6.4-8.2) g/dl Albumin 3.9 (3.4-5.0) g/dl Globulin 4.1 gm/dL Albumin/Globulin Ratio 1.0 (1-2) Meds: Medications Discontinued Medications Generic Name Dose Route Start Last Admin Trade Name Freq PRN Reason Stop Dose Admin Sodium Chloride 10 ml 08/12/18 11:39 08/12/18 11:40 Saline Flush FLUSH 10 ml ASDIRECTED PRN Administration Keep Vein Open - Re-Assessments/Exams Free Text/Narrative Re-Assessment/Exam: 08/12/18 14:15. Patient has been on and continues to take daily aspirin, Plavix in addition to her other medications. Her EKG did not show any acute ischemic changes. In came back normal. Other labs relatively normal chest x-ray was good. Sinus rhythm while here in the ED with no ectopy. As noted significant left chest wall tenderness. Discharge instructions as documented Departure - Departure Time of Disposition: 13:16 Disposition: Home, Self-Care 01 Condition: Fair Clinical Impression: Atypical chest pain, Chest wall pain Instructions: Chest Wall Pain, [id number], Nonspecific Chest Pain Referrals: Ulises Lemus MD [Primary Care Provider] - Forms: ED Department Discharge Additional Instructions: Your heart and lungs checked out well today. Alternate ice and heat as needed. Tylenol every 6-8 hours if needed for discomfort. Follow-up clinic if not getting back to normal within 3-4 days as expected, return to ED as needed if symptoms worsening in any way. - My Orders Last 24 Hours: My Active Orders 08/12/18 11:37 EKG Documentation Completion [RC] ASDIRECTED EKG 12 Lead [EK] Stat 08/12/18 11:39 Peripheral IV Care [RC] . DIRECTED Peripheral IV Insertion Adult [OM.PC] Stat 08/12/18 11:42 Chest 1V Frontal [CR] Stat - Assessment/Plan Last 24 Hours: My Active Orders 08/12/18 11:37 EKG Documentation Completion [RC] ASDIRECTED EKG 12 Lead [EK] Stat 08/12/18 11:39 Peripheral IV Care [RC] . DIRECTED Peripheral IV Insertion Adult [OM.PC] Stat 08/12/18 11:42 Chest 1V Frontal [CR] Stat
[2018-08-12] MEDS ORDERED: Sodium Chloride 0.9% 10 ML Syringe FLUSH PRN (11:39)
--- NOTE | 2018-08-13 08:54 | CR ---
Chest: Portable view of the chest was obtained. Comparison: Prior chest x-ray of 11/15/16. Heart size is normal. Tortuous thoracic aorta is seen. Lungs are clear. Bony structures are grossly intact. Impression: 1. Nothing acute is seen on portable chest x-ray. Diagnostic code #1
== END 2018-08-12 13:25 | disposition home or self-care (01) ==
LOC: JD.ED 11:10
DX: R07.89 Other chest pain (principal); I25.10 Atherosclerotic heart disease of native coronary artery without angina pectoris; E78.00 Pure hypercholesterolemia, unspecified; I10 Essential (primary) hypertension; F32.9 Major depressive disorder, single episode, unspecified; F17.210 Nicotine dependence, cigarettes, uncomplicated; Z79.899 Other long term (current) drug therapy; Z79.82 Long term (current) use of aspirin
CPT/HCPCS: 36415; 71045; 71045-26; 80053; 84484; 85025; 93005; 93010; 99284; 99285-25

== ENCOUNTER 2019-05-26 01:15 | Emergency (ER) | payer MEDICAID ==
[2019-05-26 01:29] VITALS: BP 108/72; PULSE 78
--- NOTE | 2019-05-26 01:58 | EDM.PDOC ---
ED HPI GENERAL MEDICAL PROBLEM - General Chief Complaint: Chest Pain Stated Complaint: cough chest pain Time Seen by Provider: 05/26/19 01:25 Source of Information: Reports: Patient History Limitations: Reports: No Limitations - History of Present Illness INITIAL COMMENTS - FREE TEXT/NARRATIVE: Ms. Troy is a pleasant 54-year-old woman with a past medical history significant for coronary artery disease, status post for coronary stents over to coronary angiogram, who states that she was woken around midnight with anterior chest pain felt across her entire chest. She is unable to describe the character of the pain, only that it is a pain, not a discomfort. She has not identified any modifiers. She states that the pain comes and goes, typically lasting about 5 minutes, recurring about every 20 minutes, and as we were speaking, she was pain-free. She states that she has had the same pain "100s of times" over the past 5 years. She states that she has nitroglycerin, but could not find it this morning. No associated diaphoresis or sense of impending doom. She states that she has chronic dyspnea that is unchanged. She reports that she has had 7 days of a cough occasionally productive of yellowish sputum, and 3 days of nausea, vomiting, and watery diarrhea. The patient's PCP is Dr. Ulises Lemus. 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 Left Chest Pain Score (Numeric/FACES): 7 - Related Data Allergies Allergy/AdvReac Type Severity Reaction Status Date / Time No Known Allergies Allergy Verified 05/26/19 01:29 Home Meds: Home Meds Clopidogrel [Plavix] 75 mg PO DAILY 03/20/15 [History] Metoprolol Tartrate 50 mg PO BID 03/20/15 [History] Simvastatin [Zocor] 80 mg PO BEDTIME 03/20/15 [History] SUMAtriptan [Imitrex] 50 mg PO Q2H PRN 09/04/15 [History] Aspirin [Ecotrin] 325 mg PO DAILY 07/16/16 [History] Hydrochlorothiazide 25 mg PO DAILY 07/16/16 [History] Isosorbide Mononitrate [Isosorbide Mononitrate ER] 30 mg PO DAILY 07/16/16 [ History] Lisinopril 40 mg PO DAILY 07/16/16 [History] Nitroglycerin [Nitrostat] 0.4 mg SL Q5M 07/16/16 [History] Hydrocodone/Acetaminophen [Jackson 5-325] 1 tab PO Q6H PRN 06/12/17 [History] Past Medical History Cardiovascular History: Reports: CAD, High Cholesterol, Hypertension Genitourinary History: Reports: Acute Renal Failure 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 (See Below) (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 ) Musculoskeletal History: Reports: Arthritis Neurological History: Reports: Migraines Psychiatric History: Reports: Depression (untreated) Endocrine/Metabolic History: Reports: Obesity/BMI 30+ - Infectious Disease History Infectious Disease History: Reports: Chicken Pox, Measles, Mumps - Past Surgical History HEENT Surgical History: Reports: Oral Surgery (dental extractions) Cardiovascular Surgical History: Reports: Coronary Artery Stent (x 4), Other ( See Below) (Coronary angiogram x 2) Female Surgical History: Reports: Other (See Below) (Salpingotomy) Oncologic Surgical History: Reports: Biopsy of Breast (left, benign) Dermatological Surgical History: Reports: None Social & Family History - Family History Family Medical History: Noncontributory - Tobacco Use Smoking Status *Q: Current Every Day Smoker Years of Tobacco use: 47 Packs/Tins Daily: 0.4 Packs/Tins Daily Comment: Down from 3 ppd - Caffeine Use Caffeine Use: Reports: Coffee - Alcohol Use Alcohol Use History: Yes Alcohol Use Frequency: Socially - Recreational Drug Use Recreational Drug Use: Yes Drug Use in Last 12 Months: No Recreational Drug Type: Reports: Cocaine (last snorted at 25 yrs old), Heroin ( last injected at 16 yrs old), Marijuana/Hashish (last smoked at 34 yrs old) - Living Situation & Occupation Living situation: Reports: Single, with Significant Other (Boyfriend), with Family (Son) Occupation: Unemployed ED ROS GENERAL - Review of Systems Review Of Systems: Comprehensive ROS is negative, except as noted in HPI. ED EXAM, GENERAL - Physical Exam Exam: See Below Exam Limited By: No Limitations General Appearance: Alert, WD/WN, No Apparent Distress, Other (Disheveled) Eye Exam: Bilateral Eye: EOMI, Normal Inspection Ears: Normal External Exam, Hearing Grossly Normal Nose: Normal Inspection Throat/Mouth: Normal Inspection, Normal Lips, Normal Oropharynx, Normal Voice, No Airway Compromise Head: Atraumatic, Normocephalic Neck: Normal Inspection, Full Range of Motion Respiratory/Chest: No Respiratory Distress, Lungs Clear, Normal Breath Sounds, No Accessory Muscle Use, Other (Reproducible tenderness to palpation of the patient's anterior chest, including the sternum) Cardiovascular: Normal Peripheral Pulses, Regular Rate, Rhythm, No Edema, No Gallop, No JVD, No Murmur, No Rub Peripheral Pulses: 4+: Radial (L), Radial (R) GI/Abdominal: Normal Bowel Sounds, Soft, Non-Tender, No Organomegaly, No Distention, No Abnormal Bruit, No Mass (Female) Exam: Deferred Rectal (Female) Exam: Deferred Back Exam: Normal Inspection, Full Range of Motion, NT Extremities: Normal Inspection, Normal Range of Motion, No Pedal Edema, Normal Capillary Refill Neurological: Alert, Oriented, Normal Cognition, No Motor/Sensory Deficits Psychiatric: Normal Affect Skin Exam: Warm, Dry, Intact, Normal Color, No Rash EKG INTERPRETATION EKG Date: 05/26/19 Time: 01:22 Rhythm: NSR Rate (Beats/Min): 80 [place]: Normal P-Wave: Enlarged (LAE) QRS: Normal (Late transition) ST-T: Normal QT: Normal Comparison: No Change (04/04/2019) Course - Vital Signs Last Recorded V/S: Last Vital Signs Temp 36.9 C 05/26/19 01:24 Pulse 78 05/26/19 01:24 Resp 14 05/26/19 01:24 BP 108/72 05/26/19 01:24 Pulse Ox 93 L 05/26/19 01:24 - Orders/Labs/Meds Orders: Active Orders 24 hr Category Date Time Status EKG Documentation Completion [RC] STAT Care 05/26/19 01:39 Active Labs: Laboratory Tests 05/26/19 05/26/19 05/26/19 Range/Units 01:44 01:44 01:44 WBC 7.45 (3.98-10.04) K/mm3 RBC 4.97 (3.98-5.22) M/mm3 Hgb 15.7 (11.2-15.7) gm/dl Hct 46.5 H (34.1-44.9) % MCV 93.6 (79.4-94.8) fl MCH 31.6 (25.6-32.2) pg MCHC 33.8 (32.2-35.5) g/dl RDW Std Deviation 48.1 H (36.4-46.3) fL Plt Count 358 D (182-369) K/mm3 MPV 9.3 L (9.4-12.3) fl Neut % (Auto) 58.7 (34.0-71.1) % Lymph % (Auto) 28.9 (19.3-51.7) % [place] % (Auto) 11.5 (4.7-12.5) % Eos % (Auto) 0.7 (0.7-5.8) Baso % (Auto) 0.1 (0.1-1.2) % Neut # (Auto) 4.37 (1.56-6.13) K/mm3 Lymph # (Auto) 2.15 (1.18-3.74) K/mm3 [place] # (Auto) 0.86 H (0.24-0.36) K/mm3 Eos # (Auto) 0.05 (0.04-0.36) K/mm3 Baso # (Auto) 0.01 (0.01-0.08) K/mm3 Manual Slide Review Not Reportable D-Dimer, Quantitative 0.81 H (0.19-0.50) mg/L Sodium 135 L (136-145) mEq/L Potassium 3.4 L (3.5-5.1) mEq/L Chloride 99 (98-107) mEq/L Carbon Dioxide 24 (21-32) mEq/L Anion Gap 15.4 H (5-15) BUN 20 H (7-18) mg/dL Creatinine 1.3 H (0.55-1.02) mg/dL Est Cr Clr Drug Dosing 41.73 mL/min Estimated GFR (MDRD) 42 (>60) mL/min BUN/Creatinine Ratio 15.4 (14-18) Glucose 103 (74-106) mg/dL Calcium 8.5 (8.5-10.1) mg/dL Total Bilirubin 0.2 (0.2-1.0) mg/dL AST 31 (15-37) U/L ALT 27 (14-59) U/L Alkaline Phosphatase 80 (46-116) U/L Troponin I < 0.017 (0.00-0.056) ng/mL Total Protein 8.0 (6.4-8.2) g/dl Albumin 3.8 (3.4-5.0) g/dl Globulin 4.2 gm/dL Albumin/Globulin Ratio 0.9 L (1-2) 05/26/19 Range/Units 04:05 WBC (3.98-10.04) K/mm3 RBC (3.98-5.22) M/mm3 Hgb (11.2-15.7) gm/dl Hct (34.1-44.9) % MCV (79.4-94.8) fl MCH (25.6-32.2) pg MCHC (32.2-35.5) g/dl RDW Std Deviation (36.4-46.3) fL Plt Count (182-369) K/mm3 MPV (9.4-12.3) fl Neut % (Auto) (34.0-71.1) % Lymph % (Auto) (19.3-51.7) % [place] % (Auto) (4.7-12.5) % Eos % (Auto) (0.7-5.8) Baso % (Auto) (0.1-1.2) % Neut # (Auto) (1.56-6.13) K/mm3 Lymph # (Auto) (1.18-3.74) K/mm3 [place] # (Auto) (0.24-0.36) K/mm3 Eos # (Auto) (0.04-0.36) K/mm3 Baso # (Auto) (0.01-0.08) K/mm3 Manual Slide Review D-Dimer, Quantitative (0.19-0.50) mg/L Sodium (136-145) mEq/L Potassium (3.5-5.1) mEq/L Chloride (98-107) mEq/L Carbon Dioxide (21-32) mEq/L Anion Gap (5-15) BUN (7-18) mg/dL Creatinine (0.55-1.02) mg/dL Est Cr Clr Drug Dosing mL/min Estimated GFR (MDRD) (>60) mL/min BUN/Creatinine Ratio (14-18) Glucose (74-106) mg/dL Calcium (8.5-10.1) mg/dL Total Bilirubin (0.2-1.0) mg/dL AST (15-37) U/L ALT (14-59) U/L Alkaline Phosphatase (46-116) U/L Troponin I < 0.017 (0.00-0.056) ng/mL Total Protein (6.4-8.2) g/dl Albumin (3.4-5.0) g/dl Globulin gm/dL Albumin/Globulin Ratio (1-2) - Re-Assessments/Exams Free Text/Narrative Re-Assessment/Exam: 05/26/19 01:55 The patient's history is not very consistent with a cardiac presentation - she was woken up with sharp pain felt across her chest, with no associated symptoms. Additionally, the patient's pain is reproducible by palpating her chest, strongly indicating a musculoskeletal etiology. The concerning thing, however, is that the patient says that she has received coronary stents after having similar pain, suggesting the possibility that this is cardiac. I have ordered a standard cardiac workup with expectation that everything will be normal. My intention is to then order a repeat troponin around 4 AM - 4 hours after the onset of her symptoms, if everything is negative, she may then be discharged home. 05/26/19 02:21 2-view chest radiograph appears to be grossly normal. The cardiac silhouette is within normal limits. No pulmonary vascular congestion. No pleural effusions. No focal infiltrate. No pneumothorax. Aortosclerosis noted. Formal read per the Radiologist pending. 05/26/19 03:17 The patient's CBC is remarkable for a Hct of 46.5, with the remainder of her CBC being unremarkable. Her CMP is remarkable for a sodium at the low end of normal at 135 and a potassium slightly depressed at 3.4. Her anion gap is slightly elevated at 15.4 with a bicarbonate normal at 24. Her BUN/Cr are mildly elevated at 20/1.3, with the remainder of her CMP being unremarkable. Her troponin is undetectably low. Her D-dimer is mildly elevated at 0.81. The patient's D-dimer, while mildly elevated, is not in the range consistent with a pulmonary embolus, therefore I am not recommending a CT angiogram of the chest. I have ordered a repeat troponin for 4:00. 05/26/19 04:52 The patient's repeat troponin remains undetectably low. I will discharge her home. Departure - Departure Time of Disposition: 04:53 Disposition: Home, Self-Care 01 Condition: Good Clinical Impression: Musculoskeletal chest pain - Discharge Information *PRESCRIPTION DRUG MONITORING PROGRAM REVIEWED*: Not Applicable *COPY OF PRESCRIPTION DRUG MONITORING REPORT IN PATIENT KEVIN: Not Applicable Instructions: Nonspecific Chest Pain, [id number] Referrals: Ulises Lemus MD [Primary Care Provider] - Forms: ED Department Discharge Additional Instructions: You were seen in the emergency room after waking with chest pain. Workup in the ER included blood work, a chest x-ray, and an ECG. Your entire workup was unremarkable. You have not suffered a heart attack. Based on your history, physical exam, and ER tests, the cause of your chest pain is most likely musculoskeletal. We recommend that you take [id number] ibuprofen, 2-3 tablets (400-600 mg) every 8 hours, with food, as needed for discomfort. We recommend that you follow-up with your health technician hearing at [facility] at the next available appointment. If any other problems, please do not hesitate to return to the ER. Sepsis Event Note - Evaluation Sepsis Screening Result: No Definite Risk - Focused Exam Vital Signs: Vital Signs Temp Pulse Resp BP Pulse Ox 05/26/19 01:24 36.9 C 78 14 108/72 93 L Date Exam was Performed: 05/26/19 Time Exam was Performed: 09:11 - My Orders Last 24 Hours: My Active Orders 05/26/19 01:39 EKG Documentation Completion [RC] STAT - Assessment/Plan Last 24 Hours: My Active Orders 05/26/19 01:39 EKG Documentation Completion [RC] STAT
--- NOTE | 2019-05-26 07:34 | CR ---
Chest: Two views of the chest were obtained. Comparison: Prior chest x-ray of 08/12/18. Heart size and mediastinum are normal. Lungs are clear with no acute parenchymal change. Bony structures are unremarkable. Impression: 1. Nothing acute is seen on two-view chest x-ray. Diagnostic code #1 This report was dictated in [place] Standard Time
== END 2019-05-26 05:11 | disposition home or self-care (01) ==
LOC: JD.ED 01:15
DX: R07.89 Other chest pain (principal); I25.10 Atherosclerotic heart disease of native coronary artery without angina pectoris; E78.00 Pure hypercholesterolemia, unspecified; I10 Essential (primary) hypertension; E66.9 Obesity, unspecified; G43.909 Migraine, unspecified, not intractable, without status migrainosus; F17.210 Nicotine dependence, cigarettes, uncomplicated; Z79.82 Long term (current) use of aspirin; Z79.899 Other long term (current) drug therapy; Z95.5 Presence of coronary angioplasty implant and graft; Z79.02 Long term (current) use of antithrombotics/antiplatelets
CPT/HCPCS: 36415; 71046; 71046-26; 80053; 84484; 85025; 85379; 93005; 93010; 99283; 99285-25

== ENCOUNTER 2020-07-07 22:22 | Emergency (ER) | payer MEDICAID ==
[2020-07-07] MEDS ORDERED: Sodium Chloride 0.9% 10 ML Syringe FLUSH PRN (22:43)
[2020-07-07] MEDS ORDERED: Ondansetron 4 MG/2 ML SDV IVPUSH ONE (22:47)
[2020-07-07] MEDS ORDERED: fentaNYL 100 MCG/2 ML SDV IVPUSH ONE (22:47)
--- NOTE | 2020-07-07 22:52 | EDM.PDOC ---
<CoffeeAbbie V - Last Filed: 07/07/20 23:59> ED HPI GENERAL MEDICAL PROBLEM - General Chief Complaint: Chest Pain Stated Complaint: CHEST PAIN Time Seen by Provider: 07/07/20 22:42 Source of Information: Reports: Patient, RN Notes Reviewed History Limitations: Reports: No Limitations - History of Present Illness INITIAL COMMENTS - FREE TEXT/NARRATIVE: Patient is a 55-year-old female who presents to the ED for evaluation of her chest pain, patient notes that this started 30 minutes prior to arrival to the ER. She notes this to be more of a crushing type of chest pain or pressure type of pain. She did take a nitro at home, this did not seem to help much at all. She does have a history of stent placement x4. She thinks maybe her nitroglycerin was old so she is not sure if they worked. She notes that the pain is an 8 out of 10, she was diaphoretic at home and feels lightheaded. She is not had any nausea or vomiting. She does have some pain on her left shoulder, but not down her left arm. She has not had any fevers or chills, cough or shortness of breath, or any other sick-like symptoms prior to coming to the ER for her chest pain. Treatments CUE SELECTOR: Reports: Other (see below) Other Treatments CUE SELECTOR: ntg sl Chest Pain Score (Numeric/FACES): 8 - Related Data Allergies Allergy/AdvReac Type Severity Reaction Status Date / Time No Known Allergies Allergy Verified 05/26/19 01:29 Home Meds: Home Meds Clopidogrel [Plavix] 75 mg PO DAILY 03/20/15 [History] Metoprolol Tartrate 50 mg PO BID 03/20/15 [History] Simvastatin [Zocor] 80 mg PO BEDTIME 03/20/15 [History] SUMAtriptan [Imitrex] 50 mg PO Q2H PRN 09/04/15 [History] Aspirin [Ecotrin] 325 mg PO DAILY 07/16/16 [History] Hydrochlorothiazide 25 mg PO DAILY 07/16/16 [History] Isosorbide Mononitrate [Isosorbide Mononitrate ER] 30 mg PO DAILY 07/16/16 [History] Lisinopril 40 mg PO DAILY 07/16/16 [History] Nitroglycerin [Nitrostat] 0.4 mg SL Q5M 07/16/16 [History] Hydrocodone/Acetaminophen [[place] 5-325] 1 tab PO Q6H PRN 06/12/17 [History] Past Medical History HEENT History: Reports: Other (See Below) Other HEENT History: no teeth Cardiovascular History: Reports: CAD, High Cholesterol, Hypertension Other Cardiovascular History: PCI, NSTEMI x9 Gastrointestinal History: Reports: Other (See Below) Other Gastrointestinal History: Biliary stones Genitourinary History: Reports: Acute Renal Failure Other Genitourinary History: acute kidney failure, polyuria, polydipsia PREVENTIVE MEDICINE SPECIALIST History: Reports: Other (See Below) ([place] ) Other PREVENTIVE MEDICINE SPECIALIST History: mondor's disease of breast, lumpectomy Musculoskeletal History: Reports: Arthritis Other Musculoskeletal History: right shoulder pain Neurological History: Reports: Migraines Psychiatric History: Reports: Depression (untreated) Endocrine/Metabolic History: Reports: Obesity/BMI 30+ - Infectious Disease History Infectious Disease History: Reports: Chicken Pox, Measles, Mumps - Past Surgical History HEENT Surgical History: Reports: Oral Surgery (dental extractions) Cardiovascular Surgical History: Reports: Coronary Artery Stent (x 4), Other (See Below) (Coronary angiogram x 2) Female Surgical History: Reports: Other (See Below) (Salpingotomy) Oncologic Surgical History: Reports: Biopsy of Breast (left, benign) Dermatological Surgical History: Reports: None Social & Family History - Family History Family Medical History: No Pertinent Family History - Caffeine Use Caffeine Use: Reports: Coffee - Living Situation & Occupation Living situation: Reports: Single, with Significant Other (Boyfriend), with Family (Son) Occupation: Unemployed ED ROS GENERAL - Review of Systems Review Of Systems: Comprehensive ROS is negative, except as noted in HPI. ED EXAM, GENERAL - Physical Exam Exam: See Below Exam Limited By: No Limitations General Appearance: Alert, WD/WN, No Apparent Distress Eye Exam: Bilateral Eye: EOMI, Normal Inspection, PERRL Throat/Mouth: Normal Inspection, Normal Lips, Normal Teeth, Normal Gums, Normal Oropharynx, Normal Voice, No Airway Compromise Respiratory/Chest: No Respiratory Distress, Lungs Clear, Normal Breath Sounds, No Accessory Muscle Use, Chest Non-Tender Cardiovascular: Normal Peripheral Pulses, Regular Rate, Rhythm, No Edema Peripheral Pulses: 2+: Radial (R), Femoral (L) GI/Abdominal: Normal Bowel Sounds, Soft, Non-Tender, No Distention, No Mass Extremities: Normal Inspection, Normal Capillary Refill Neurological: Alert, Oriented, Normal Cognition, No Motor/Sensory Deficits Psychiatric: Normal Affect, Normal Mood Skin Exam: Warm, Dry, Intact, Normal Color, No Rash #1 Interpretation EKG Date: 07/07/20 Time: 22:31 Rhythm: NSR Rate (Beats/Min): 69 [place]: Normal P-Wave: Present QRS: Normal ST-T: Normal QT: Normal Comparison: NA - No Prior EKG EKG Interpretation Comments: No obvious ischemia or acute ST changes noted, reviewed by myself and Dr. Tran. Course - Re-Assessments/Exams Free Text/Narrative Re-Assessment/Exam: 07/07/20 22:51 Patient presents to the ED for chest pressure/pain. EKG was done at time of triage, demonstrates no acute ST abnormalities. This was reviewed by myself and Dr. Tran. Labs to be obtained at time of triage, IV was established, I will give the patient 50 mcg fentanyl for her ongoing chest discomfort as her nitro did not seem to work at home. 07/07/20 23:57 Laboratory evaluation demonstrates an white count is mildly elevated at 11.08, potassium is mildly low at 3.4, rest of metabolic panel essentially unremarkable, troponin is undetectably low, CK-MB is elevated at 5.0, patient was given a dose of 0.4 mg sublingual nitro, states that this has helped some of the pain as well. We will keep the patient around for a 3-hour repeat troponin, for cardiac rule out, I will discuss the case with Dr. Tran, for further management and disposition patient's blood pressure has come down to 165 systolically while being in the ER.. Departure - Departure Disposition: Home, Self-Care 01 Clinical Impression: Chest pain of uncertain etiology Referrals: Ulises Lemus MD [Primary Care Provider] - Forms: ED Department Discharge Additional Instructions: You were seen in the emergency room after developing chest pain with sweatiness and lightheadedness. Work-up in the ER included numerous blood tests, a chest x-ray, and an ECG. Your entire work-up was unremarkable. You have not suffered a heart attack, however, that does not mean that your pain was not coming from your heart. We recommend that you follow-up with your PCP, Dr. Ulises Lemus, at the next available appointment, to arrange for a cardiac stress test. If any other problems, please do not hesitate to return to the ER. You were given an influenza vaccine during your ER visit. Sepsis Event Note (ED) - Evaluation Sepsis Screening Result: No Definite Risk <Drew Tran Rhiannon - Last Filed: 07/08/20 02:25> #1 Interpretation Rhythm: NSR [place]: Normal P-Wave: Present (1st degree AVB) Course - Vital Signs Last Recorded V/S: Last Vital Signs Temp 35.9 C L 07/07/20 22:42 Pulse 67 07/07/20 22:42 Resp 17 07/07/20 22:42 BP 165/92 H 07/07/20 23:50 Pulse Ox 90 L 07/07/20 22:42 - Orders/Labs/Meds Orders: Active Orders 24 hr Category Date Time Status EKG Documentation Completion [RC] STAT Care 07/07/20 22:43 Active Influenza Vaccine Charge [RC] .DISCHARGE Care 07/08/20 02:20 Active Peripheral IV Care [RC] . DIRECTED Care 07/07/20 22:43 Active Chest 2V [CR] Stat Exams 07/07/20 22:43 Taken Pharmacy to Dose - InFluenza V [Pharmacy to Dose - Med 07/08/20 02:20 Once InFluenza Vaccine] 1 each IM ONETIME ONE Sodium Chloride 0.9% [Saline Flush] Med 07/07/20 22:43 Active 10 ml FLUSH ASDIRECTED PRN Peripheral IV Insertion Adult [OM.PC] Stat Oth 07/07/20 22:43 Ordered Medication Orders Influenza Virus Vaccine (Pharmacy To Dose - Influenza Vaccine) 1 each IM ONETIME ONE Stop: 07/08/20 02:21 Sodium Chloride (Saline Flush) 10 ml FLUSH ASDIRECTED PRN PRN Reason: Keep Vein Open Last Admin: 07/07/20 23:12 Dose: 10 ml Documented by: [id number] Labs: Laboratory Tests 07/07/20 07/07/20 07/07/20 Range/Units 22:37 22:37 22:37 WBC 11.08 H (3.98-10.04) K/mm3 RBC 4.63 (3.98-5.22) M/mm3 Hgb 14.6 (11.2-15.7) gm/dl Hct 44.1 (34.1-44.9) % MCV 95.2 H (79.4-94.8) fl MCH 31.5 (25.6-32.2) pg MCHC 33.1 (32.2-35.5) g/dl RDW Std Deviation 48.8 H (36.4-46.3) fL Plt Count 416 H (182-369) K/mm3 MPV 8.9 L (9.4-12.3) fl Neut % (Auto) 52.5 (34.0-71.1) % Lymph % (Auto) 35.2 (19.3-51.7) % [place] % (Auto) 7.9 (4.7-12.5) % Eos % (Auto) 3.8 (0.7-5.8) Baso % (Auto) 0.3 (0.1-1.2) % Neut # (Auto) 5.83 (1.56-6.13) K/mm3 Lymph # (Auto) 3.90 H (1.18-3.74) K/mm3 [place] # (Auto) 0.87 H (0.24-0.36) K/mm3 Eos # (Auto) 0.42 H (0.04-0.36) K/mm3 Baso # (Auto) 0.03 (0.01-0.08) K/mm3 Manual Slide Review Abnormal smear PT 9.8 (9.7-12.0) SECONDS INR < 0.93 APTT 29.0 (21.7-31.4) SECONDS Sodium 141 (136-145) mEq/L Potassium 3.4 L (3.5-5.1) mEq/L Chloride 104 (98-107) mEq/L Carbon Dioxide 26 (21-32) mEq/L Anion Gap 14.4 (5-15) BUN 16 (7-18) mg/dL Creatinine 1.1 H (0.55-1.02) mg/dL Est Cr Clr Drug Dosing 46.68 mL/min Estimated GFR (MDRD) 51 (>60) mL/min BUN/Creatinine Ratio 14.5 (14-18) Glucose 99 (74-106) mg/dL Calcium 8.8 (8.5-10.1) mg/dL Magnesium 1.9 (1.8-2.4) mg/dl Total Bilirubin 0.2 (0.2-1.0) mg/dL AST 20 (15-37) U/L ALT 26 (14-59) U/L Alkaline Phosphatase 91 (46-116) U/L CK-MB (CK-2) 5.0 H (0-3.6) ng/ml Troponin I < 0.017 (0.00-0.056) ng/mL NT-Pro-B Natriuret Pep (0-125) pg/mL Total Protein 7.9 (6.4-8.2) g/dl Albumin 3.8 (3.4-5.0) g/dl Globulin 4.1 gm/dL Albumin/Globulin Ratio 0.9 L (1-2) 07/07/20 07/08/20 Range/Units 22:37 01:40 WBC (3.98-10.04) K/mm3 RBC (3.98-5.22) M/mm3 Hgb (11.2-15.7) gm/dl Hct (34.1-44.9) % MCV (79.4-94.8) fl MCH (25.6-32.2) pg MCHC (32.2-35.5) g/dl RDW Std Deviation (36.4-46.3) fL Plt Count (182-369) K/mm3 MPV (9.4-12.3) fl Neut % (Auto) (34.0-71.1) % Lymph % (Auto) (19.3-51.7) % [place] % (Auto) (4.7-12.5) % Eos % (Auto) (0.7-5.8) Baso % (Auto) (0.1-1.2) % Neut # (Auto) (1.56-6.13) K/mm3 Lymph # (Auto) (1.18-3.74) K/mm3 [place] # (Auto) (0.24-0.36) K/mm3 Eos # (Auto) (0.04-0.36) K/mm3 Baso # (Auto) (0.01-0.08) K/mm3 Manual Slide Review PT (9.7-12.0) SECONDS INR APTT (21.7-31.4) SECONDS Sodium (136-145) mEq/L Potassium (3.5-5.1) mEq/L Chloride (98-107) mEq/L Carbon Dioxide (21-32) mEq/L Anion Gap (5-15) BUN (7-18) mg/dL Creatinine (0.55-1.02) mg/dL Est Cr Clr Drug Dosing mL/min Estimated GFR (MDRD) (>60) mL/min BUN/Creatinine Ratio (14-18) Glucose (74-106) mg/dL Calcium (8.5-10.1) mg/dL Magnesium (1.8-2.4) mg/dl Total Bilirubin (0.2-1.0) mg/dL AST (15-37) U/L ALT (14-59) U/L Alkaline Phosphatase (46-116) U/L CK-MB (CK-2) (0-3.6) ng/ml Troponin I < 0.017 (0.00-0.056) ng/mL NT-Pro-B Natriuret Pep 46 (0-125) pg/mL Total Protein (6.4-8.2) g/dl Albumin (3.4-5.0) g/dl Globulin gm/dL Albumin/Globulin Ratio (1-2) Meds: Medications Generic Name Dose Route Start Last Admin Trade Name Freq PRN Reason Stop Dose Admin Influenza Virus Vaccine 1 each 07/08/20 02:20 Pharmacy To Dose - Influenza Vaccine IM 07/08/20 02:21 ONETIME ONE Sodium Chloride 10 ml 07/07/20 22:43 07/07/20 23:12 Saline Flush FLUSH 10 ml ASDIRECTED PRN Administration Keep Vein Open Discontinued Medications Generic Name Dose Route Start Last Admin Trade Name Freq PRN Reason Stop Dose Admin Fentanyl 50 mcg 07/07/20 22:47 07/07/20 23:12 Sublimaze IVPUSH 07/07/20 22:48 50 mcg ONETIME ONE Administration Nitroglycerin 0.4 mg 07/07/20 23:25 07/07/20 23:50 Nitrostat SL 07/07/20 23:26 0.4 mg ONETIME ONE Administration Ondansetron HCl 4 mg 07/07/20 22:47 07/07/20 23:12 Zofran IVPUSH 07/07/20 22:48 4 mg ONETIME ONE Administration - Re-Assessments/Exams Free Text/Narrative Re-Assessment/Exam: 07/08/20 01:21 Case received from ROSEMARIE Sorensen. I agree with her history and physical examination as documented. Two-view chest radiograph appears to be grossly normal. The cardiac silhouette is within normal limits. No pulmonary vascular congestion. No pleural effusions. No focal infiltrate. No pneumothorax. A small amount of aortosclerosis is incidentally noted. Formal read per the Radiologist pending. The patient's magnesium level is within normal limits at 1.9. Her pro-BNP is within normal limits at 46. Her coags are within normal limits. A repeat troponin is due to be drawn within the next few minutes. 07/08/20 02:15 The patient's repeat troponin is still undetectably low. 07/08/20 02:20 Test results discussed with the patient. I explained to her that she has not suffered an AR, although that does not mean that her chest pain is necessarily not anginal. Medical records indicate that her last cardiac stress post was on 06/03/2019, therefore she is due. I would like her to follow-up with her PCP, Dr. Lemus, to arrange for another one. The patient will be given an influenza vaccine prior to discharge. Departure - Departure Time of Disposition: 02:23 Condition: Good Sepsis Event Note (ED) - Focused Exam Vital Signs: Vital Signs Temp Pulse Resp BP BP Pulse Ox 07/07/20 23:50 165/92 H 07/07/20 22:42 35.9 C L 67 17 221/106 H 90 L - My Orders Last 24 Hours: My Active Orders 07/08/20 02:20 Influenza Vaccine Charge [RC] .DISCHARGE Pharmacy to Dose - InFluenza V [Pharmacy to Dose - InFluenza Vaccine] 1 each IM ONETIME ONE - Assessment/Plan Last 24 Hours: My Active Orders 07/08/20 02:20 Influenza Vaccine Charge [RC] .DISCHARGE Pharmacy to Dose - InFluenza V [Pharmacy to Dose - InFluenza Vaccine] 1 each IM ONETIME ONE
[2020-07-07] MEDS ORDERED: Nitroglycerin 0.4 MG Tab.SL SL ONE (23:25)
[2020-07-08] MEDS ORDERED: FLU VACC QS2020-21(6MOS UP)/PF 60 MCG/0.5 ML SYRINGE IM ONE (02:30)
[2020-07-08 02:45] VITALS: BP 134/80; PULSE 80
--- NOTE | 2020-07-08 09:49 | CR ---
Chest: PA and lateral views of the chest were obtained. Comparison: Prior chest x-ray of 05/26/19. Slight linear atelectasis is noted within the left lung base. Lungs otherwise are clear. Bony structures appear within normal limits for the patient's age. Heart size is normal. Slight tortuosity of the thoracic aorta is seen. Impression: 1. Slight atelectasis within left lung base. 2. Nothing acute is otherwise seen. Diagnostic code #2
== END 2020-07-08 02:42 | disposition home or self-care (01) ==
LOC: JD.ED 22:22
DX: R07.9 Chest pain, unspecified (principal); M25.512 Pain in left shoulder; I25.10 Atherosclerotic heart disease of native coronary artery without angina pectoris; E78.00 Pure hypercholesterolemia, unspecified; I10 Essential (primary) hypertension; M19.90 Unspecified osteoarthritis, unspecified site; D72.829 Elevated white blood cell count, unspecified; I44.0 Atrioventricular block, first degree; E66.9 Obesity, unspecified; Z68.41 Body mass index [BMI] 40.0-44.9, adult; Z23 Encounter for immunization; Z79.02 Long term (current) use of antithrombotics/antiplatelets; Z79.899 Other long term (current) drug therapy; Z79.82 Long term (current) use of aspirin
CPT/HCPCS: 36415; 71046; 80053; 82553; 83735; 83880; 84484; 85025; 85610; 85730; 90471; 90686; 93005; 96374; 96375; 99285; A9270; J2405; J3010; 93010; 99284; G0008

== ENCOUNTER 2022-06-21 19:36 | Emergency (ER) | payer MEDICAID ==
[2022-06-21] MEDS ORDERED: Ondansetron 4 MG/2 ML SDV IVPUSH ONE (20:16)
[2022-06-21] MEDS ORDERED: HYDROmorphone 1 MG/ML Syringe IVPUSH STA (20:16)
[2022-06-21] MEDS ORDERED: Sodium Chloride 0.9% 1,000 ML IV SCH (20:30)
[2022-06-21 22:14] LABS: CORONAVIRUS COVID-19 NAA POSITIVE (NEGATIVE)
[2022-06-21 23:24] VITALS: BP 139/87; PULSE 85
== END 2022-06-21 23:20 | disposition home or self-care (01) ==
LOC: JD.ED 19:36
DX: U07.1 COVID-19 (principal); R31.29 Other microscopic hematuria; I25.10 Atherosclerotic heart disease of native coronary artery without angina pectoris; E78.00 Pure hypercholesterolemia, unspecified; I10 Essential (primary) hypertension; I25.2 Old myocardial infarction; R93.89 Abnormal findings on diagnostic imaging of other specified body structures; E66.9 Obesity, unspecified; F17.210 Nicotine dependence, cigarettes, uncomplicated; Z79.02 Long term (current) use of antithrombotics/antiplatelets; Z79.899 Other long term (current) drug therapy; Z68.35 Body mass index [BMI] 35.0-35.9, adult
CPT/HCPCS: 0241U; 36415; 71045; 74176; 80053; 81001; 82977; 83690; 85025; 86140; 87086; 96361; 96374; 96375; 99284; J1170; J2405; J7030

== ENCOUNTER 2022-06-22 14:35 | Inpatient (IN) | payer MEDICARE, MEDICAID ==
[2022-06-22] MEDS ORDERED: Sodium Chloride 0.9% 10 ML Syringe FLUSH PRN (15:07)
[2022-06-22] MEDS ORDERED: Iopamidol 612 MG/ML 100 ML Bottle IVPUSH ONE ×2 (15:27→15:29)
[2022-06-22] MEDS ORDERED: Sodium Chloride 0.9% 10 ML Syringe FLUSH ONE ×2 (15:30)
[2022-06-22] MEDS ORDERED: Iopamidol 612 MG/ML 50 ML SDV IVPUSH ONE (16:06)
[2022-06-22] MEDS ORDERED: Albuterol 0.083% 2.5 MG/3 ML Neb Soln NEB PRN (20:49)
[2022-06-22] MEDS ORDERED: REMDESIVIR 100 MG in Sodium Chloride 0.9% 250 ML IV ONE (21:15)
[2022-06-22] MEDS: Dexamethasone 4 MG/ML SDV IVPUSH SCH (21:36)
[2022-06-22] MEDS: Nicotine 21 MG/24 Hr Patch TRDERM SCH (21:42)
[2022-06-22] MEDS ORDERED: REMDESIVIR 200 MG in Sodium Chloride 0.9% 250 ML IV ONE (22:00)
[2022-06-22] MEDS: Albuterol 0.083% 2.5 MG/3 ML Neb Soln NEB SCH (22:25)
[2022-06-23] MEDS: Albuterol 0.083% 2.5 MG/3 ML Neb Soln NEB SCH ×2 (03:24→10:05)
[2022-06-23 06:51] LABS: ESTIMATED GFR 58 mL/min (>60)
[2022-06-23] MEDS ORDERED: Acetaminophen 325 MG Tab PO PRN (09:04)
[2022-06-23] MEDS ORDERED: Ondansetron 4 MG/2 ML SDV IV PRN (09:04)
[2022-06-23] MEDS ORDERED: Docusate Sodium 100 MG Cap PO PRN (09:04)
[2022-06-23] MEDS ORDERED: traMADol 50 MG Tab PO PRN (09:07)
[2022-06-23] MEDS ORDERED: Metoprolol Tartrate 50 MG Tab PO SCH (09:15)
[2022-06-23] MEDS ORDERED: Aspirin 325 MG Tab.EC PO SCH (09:15)
[2022-06-23] MEDS ORDERED: Cyclobenzaprine 10 MG Tab PO PRN (10:05)
[2022-06-23] MEDS: Albuterol/Ipratropium 3.0-0.5 MG/3 ML Neb Soln NEB SCH ×3 (10:10→20:08)
[2022-06-23] MEDS: Aspirin 81 MG Tab.EC PO SCH (10:23)
[2022-06-23] MEDS: Dexamethasone 4 MG/ML SDV IVPUSH SCH (10:23)
[2022-06-23] MEDS: Isosorbide Mononitrate 60 MG Tab.ER PO SCH (10:23)
[2022-06-23] MEDS: Clopidogrel 75 MG Tab PO SCH (10:23)
[2022-06-23] MEDS ORDERED: Polyethylene Glycol 3350 Powder 17 GM Packet PO PRN (11:29)
[2022-06-23] MEDS: Sertraline 25 MG Tab PO SCH (11:53)
[2022-06-23] MEDS: Famotidine 20 MG Tab PO SCH ×2 (11:53→21:17)
[2022-06-23] MEDS ORDERED: Cyclobenzaprine 10 MG Tab PO SCH (14:00)
[2022-06-23] MEDS: Nicotine 21 MG/24 Hr Patch TRDERM SCH (15:38)
[2022-06-23] MEDS: guaiFENesin/Dextromethorphan 100-10 MG/5 ML Soln 5 ML Cup PO SCH ×2 (15:39→21:16)
[2022-06-23] MEDS ORDERED: atorvaSTATin 40 MG Tab PO SCH (21:00)
[2022-06-23] MEDS ORDERED: Sodium Chloride 0.9% 0 ML ONE (21:08)
[2022-06-23] MEDS: atorvaSTATin 40 MG Tab PO SCH (21:16)
[2022-06-23] MEDS: Carvedilol 12.5 MG Tab PO SCH (21:17)
[2022-06-23] MEDS: REMDESIVIR 100 MG in Sodium Chloride 0.9% 250 ML IV SCH (21:21)
[2022-06-24] MEDS: guaiFENesin/Dextromethorphan 100-10 MG/5 ML Soln 5 ML Cup PO SCH ×4 (05:55→20:27)
[2022-06-24] MEDS: Albuterol/Ipratropium 3.0-0.5 MG/3 ML Neb Soln NEB SCH ×2 (06:06→09:17)
[2022-06-24 06:39] LABS: ESTIMATED GFR 74 mL/min (>60)
[2022-06-24] MEDS: Nicotine 14 MG/24 Hr Patch TRDERM SCH (08:03)
[2022-06-24] MEDS: Carvedilol 12.5 MG Tab PO SCH ×2 (08:05→20:26)
[2022-06-24] MEDS: Isosorbide Mononitrate 60 MG Tab.ER PO SCH (08:06)
[2022-06-24] MEDS: Clopidogrel 75 MG Tab PO SCH (08:06)
[2022-06-24] MEDS: Sertraline 25 MG Tab PO SCH (08:07)
[2022-06-24] MEDS: Dexamethasone 6 MG TABLET PO SCH (08:07)
[2022-06-24] MEDS: Famotidine 20 MG Tab PO SCH ×2 (08:07→20:27)
[2022-06-24] MEDS: Aspirin 81 MG Tab.EC PO SCH (08:07)
[2022-06-24] MEDS: Tiotropium Bromide 4 GM Inhalation Spray (2.5mcg/1 dose; 10 doses) INH SCH (08:25)
[2022-06-24] MEDS ORDERED: Isosorbide Mononitrate 30 MG Tab.ER PO SCH (09:00)
[2022-06-24] MEDS ORDERED: Albuterol/Ipratropium 3.0-0.5 MG/3 ML Neb Soln NEB PRN (12:00)
[2022-06-24] MEDS: atorvaSTATin 40 MG Tab PO SCH (20:25)
[2022-06-24] MEDS: REMDESIVIR 100 MG in Sodium Chloride 0.9% 250 ML IV SCH (22:11)
[2022-06-25] MEDS: guaiFENesin/Dextromethorphan 100-10 MG/5 ML Soln 5 ML Cup PO SCH ×2 (06:07→14:12)
[2022-06-25 06:31] LABS: ESTIMATED GFR 65 mL/min (>60)
[2022-06-25] MEDS ORDERED: Magnesium Oxide 400 MG Tab PO ONE (09:00)
[2022-06-25] MEDS ORDERED: Potassium Chloride 20 MEQ Tab.ER PO ONE (09:00)
[2022-06-25] MEDS: Tiotropium Bromide 4 GM Inhalation Spray (2.5mcg/1 dose; 10 doses) INH SCH (09:11)
[2022-06-25] MEDS: Nicotine 14 MG/24 Hr Patch TRDERM SCH (09:18)
[2022-06-25] MEDS: Carvedilol 12.5 MG Tab PO SCH (09:18)
[2022-06-25] MEDS: Famotidine 20 MG Tab PO SCH (09:19)
[2022-06-25] MEDS: Sertraline 25 MG Tab PO SCH (09:19)
[2022-06-25] MEDS: Clopidogrel 75 MG Tab PO SCH (09:19)
[2022-06-25] MEDS: Dexamethasone 6 MG TABLET PO SCH (09:19)
[2022-06-25] MEDS: Isosorbide Mononitrate 60 MG Tab.ER PO SCH (09:19)
[2022-06-25] MEDS: Aspirin 81 MG Tab.EC PO SCH (09:19)
[2022-06-25 09:21] VITALS: BP 153/108; PULSE 62
== END 2022-06-25 15:18 | disposition home or self-care (01) | DRG 177 ==
LOC: JD.ED 14:35 → JD.MS 19:37
PROVIDERS: ADMIT Internal Medicine Cardiovascular Disease; ATTEND Internal Medicine Cardiovascular Disease
PROC: XW033E5 Introduction of Remdesivir Anti-infective into Peripheral Vein, Percutaneous Approach, New Technology Group 5 (ICD-10-PCS; principal; 2022-06-22)
PROC: 8E0ZXY6 Isolation (ICD-10-PCS; 2022-06-23)
PROC: 3E02340 Introduction of Influenza Vaccine into Muscle, Percutaneous Approach (ICD-10-PCS; 2022-06-25)
DX: U07.1 COVID-19 (principal); J96.01 Acute respiratory failure with hypoxia; R09.02 Hypoxemia; E78.5 Hyperlipidemia, unspecified; N18.31 Chronic kidney disease, stage 3a; I80.8 Phlebitis and thrombophlebitis of other sites; F32.89 Other specified depressive episodes; E66.01 Morbid (severe) obesity due to excess calories; Z23 Encounter for immunization; J43.9 Emphysema, unspecified; R31.29 Other microscopic hematuria; N20.0 Calculus of kidney; R10.31 Right lower quadrant pain; J45.909 Unspecified asthma, uncomplicated; F32.A Depression, unspecified; I12.9 Hypertensive chronic kidney disease with stage 1 through stage 4 chronic kidney disease, or unspecified chronic kidney disease; R10.9 Unspecified abdominal pain; I10 Essential (primary) hypertension; I25.10 Atherosclerotic heart disease of native coronary artery without angina pectoris; E78.00 Pure hypercholesterolemia, unspecified; F17.210 Nicotine dependence, cigarettes, uncomplicated; Z79.82 Long term (current) use of aspirin; I25.2 Old myocardial infarction; E66.9 Obesity, unspecified; Z68.37 Body mass index [BMI] 37.0-37.9, adult; Z79.52 Long term (current) use of systemic steroids; Z79.899 Other long term (current) drug therapy; Z95.5 Presence of coronary angioplasty implant and graft
CPT/HCPCS: 36415; 71045; 71275; 74177; 80053; 83690; 83735; 84484 ×2; 85025; 85379; 86140; 93005; 99285; J3490 ×2; Q9967 ×2; 80048; 81001; 90686; 94640; 94667; 94668; 94760; 94761; 99223; 99233; 99239; A9270-GY; G0008; J0248; J1100; J7050; J7620-GY; J8540

== ENCOUNTER 2023-03-08 20:32 | Emergency (ER) | payer MEDICARE, MEDICAID ==
[2023-03-08] MEDS ORDERED: Sodium Chloride 0.9% 10 ML Syringe FLUSH PRN (21:09)
[2023-03-08 21:15] LABS: BASOPHILS PERCENT AUTO 0.4 % (0.0-1.0); EOSINOPHILS ABSOLUTE AUTO 0.3 K/mm3 (0.0-0.4); EOSINOPHILS PERCENT AUTO 3.1 % (0.0-6.0); HEMATOCRIT 46.3 % (37.0-47.0); HEMOGLOBIN 15.8 gm/dl (12.0-16.0); IMMATURE GRAN ABSOLUTE AUTO 0.03 K/mm3 (0.00-0.05); IMMATURE GRAN PERCENT AUTO 0.3 % (0.0-0.4); LYMPHOCYTES PERCENT AUTO 31.2 % (24.0-44.0); MEAN CORPUSCULAR HEMOGLOBIN 31.9 pg (28.0-32.0); MEAN CORPUSCULAR HGB CONC 34.1 g/dl (32.0-36.0); MEAN CORPUSCULAR VOLUME 93.3 fl (83.0-99.0); MEAN PLATELET VOLUME 8.9 fl (9.4-12.3); MONOCYTES ABSOLUTE AUTO 0.7 K/mm3 (0.0-0.8); MONOCYTES PERCENT AUTO 7.7 % (0.0-8.0); NEUTROPHILS ABSOLUTE AUTO 5.4 K/mm3 (1.8-7.7); NEUTROPHILS PERCENT AUTO 57.3 % (41.0-71.0); PLATELET COUNT,PLT 380 K/mm3 (150-400); RED BLOOD CELL COUNT 4.96 M/mm3 (4.10-5.30); WHITE BLOOD CELL COUNT,WBC 9.47 K/mm3 (3.9-11.3)
[2023-03-08 21:26] LABS: A/G RATIO 0.8 (1-2); ALBUMIN 3.4 g/dl (3.4-5.0); ANION GAP 11.6 (5-15); BILIRUBIN TOTAL 0.3 mg/dL (0.2-1.0); CALCIUM 9.3 mg/dL (8.5-10.1); EST CRCL DRUG DOSING (CG) 54.51 mL/min; POTASSIUM,K 3.6 mEq/L (3.5-5.1); PROTEIN TOTAL,TP 7.5 g/dl (6.4-8.2)
[2023-03-08] MEDS ORDERED: Lisinopril 10 MG Tab PO ONE (21:26)
[2023-03-08] MEDS ORDERED: NIFEdipine 10 MG Cap PO ONE (22:04)
[2023-03-08] MEDS ORDERED: Diclofenac Sodium 1% Gel 100 GM Tube TOP ONE (22:08)
[2023-03-08] MEDS ORDERED: NIFEdipine 30 MG Tab.ER PO ONE (23:51)
[2023-03-09] VITALS: PULSE 75
[2023-03-09 00:19] VITALS: BP 155/83
== END 2023-03-09 00:17 | disposition home or self-care (01) ==
LOC: JD.ED 20:32
DX: R07.89 Other chest pain (principal); E78.00 Pure hypercholesterolemia, unspecified; I10 Essential (primary) hypertension; E66.9 Obesity, unspecified; F17.210 Nicotine dependence, cigarettes, uncomplicated; Z68.39 Body mass index [BMI] 39.0-39.9, adult; Z79.82 Long term (current) use of aspirin; Z79.899 Other long term (current) drug therapy
CPT/HCPCS: 36415; 71046; 80053; 84484; 85025; 93005; 99285; A9270; J3490; 93010; 99283

== ENCOUNTER 2024-04-30 16:57 | Emergency (ER) | payer MEDICARE, MEDICAID ==
[2024-04-30 17:17] VITALS: BP 122/73; PULSE 62
[2024-04-30] MEDS ORDERED: Sodium Chloride 0.9% 10 ML Syringe FLUSH PRN (17:59)
[2024-04-30 18:14] LABS: HEMOGLOBIN 13.8 gm/dl (12.0-16.0); MEAN CORPUSCULAR HGB CONC 33.7 g/dl (32.0-36.0); MEAN CORPUSCULAR VOLUME 95.1 fl (83.0-99.0); MEAN PLATELET VOLUME 9.1 fl (9.4-12.3); PLATELET COUNT,PLT 388 K/mm3 (150-400); RED BLOOD CELL COUNT 4.31 M/mm3 (4.10-5.30); WHITE BLOOD CELL COUNT,WBC 11.69 K/mm3 (3.9-11.3)
[2024-04-30] MEDS ORDERED: Sodium Chloride 0.9% 100 ML IV SCH (18:15)
[2024-04-30] MEDS: Ketorolac 15 MG/ML SDV IVPUSH ONE (18:21)
[2024-04-30] MEDS: droPERidol 5 MG/2 ML SDV IVPUSH ONE (18:24)
[2024-04-30 18:36] LABS: A/G RATIO 0.9 (1-2); ALBUMIN 3.3 g/dl (3.4-5.0); ANION GAP 12.1 (5-15); BILIRUBIN TOTAL 0.3 mg/dL (0.2-1.0); BUN/CREATININE RATIO 12.5 (14-18); CALCIUM 8.4 mg/dL (8.5-10.1); CREATININE 1.2 mg/dL (0.55-1.02); EST CRCL DRUG DOSING (CG) 46.67 mL/min; POTASSIUM,K 4.1 mEq/L (3.5-5.1); PROTEIN TOTAL,TP 7.1 g/dl (6.4-8.2)
[2024-04-30] MEDS: Iopamidol 755 Mg/ML 100 ML Bottle IVPUSH ONE (18:54)
[2024-04-30 18:57] LABS: BAND PERCENT MAN 0 % (0-10); BASOPHILS PERCENT MAN 0 (0.1-1.2); EOSINOPHILS PERCENT MAN 1 % (0.7-5.8); LYMPHOCYTES % ATYPICAL MANUAL 0 %; LYMPHOCYTES PERCENT MAN 23 % (20-40); MONOCYTES PERCENT MAN 6 % (2-10); PLATELET COUNT ESTIMATE ADEQUATE
== END 2024-04-30 21:38 | disposition home or self-care (01) ==
LOC: JD.ED 16:57
DX: N63.41 Unspecified lump in right breast, subareolar (principal); R07.89 Other chest pain; I25.10 Atherosclerotic heart disease of native coronary artery without angina pectoris; I10 Essential (primary) hypertension; E78.00 Pure hypercholesterolemia, unspecified; J45.909 Unspecified asthma, uncomplicated; E66.9 Obesity, unspecified; F17.200 Nicotine dependence, unspecified, uncomplicated; Z95.5 Presence of coronary angioplasty implant and graft; Z79.51 Long term (current) use of inhaled steroids; Z79.899 Other long term (current) drug therapy; Z68.38 Body mass index [BMI] 38.0-38.9, adult
CPT/HCPCS: 36415; 71275; 80053; 84484; 85007; 85027; 93005; 96374; 99285; J1885; Q9967

== ENCOUNTER 2024-05-01 04:39 | Emergency (ER) | payer MEDICARE, MEDICAID ==
[2024-05-01] MEDS: Sodium Chloride 0.9% 1,000 ML IV SCH (05:09)
[2024-05-01] MEDS: Ondansetron 4 MG/2 ML SDV IVPUSH ONE ×2 (05:10→09:25)
[2024-05-01] MEDS: HYDROmorphone 0.5 MG/0.5 ML Syringe IVPUSH ONE ×3 (05:10→09:46)
[2024-05-01] MEDS: Sodium Chloride 0.9% 10 ML Syringe FLUSH PRN (05:11)
[2024-05-01 05:24] LABS: A/G RATIO 0.9 (1-2); ALBUMIN 3.8 g/dl (3.4-5.0); BILIRUBIN TOTAL 0.5 mg/dL (0.2-1.0); BUN/CREATININE RATIO 11.7 (14-18); C-REACTIVE PROTEIN 4.38 mg/dL (<0.30); CREATININE 1.2 mg/dL (0.55-1.02); EST CRCL DRUG DOSING (CG) 48.48 mL/min; MAGNESIUM 1.9 mg/dL (1.8-2.4)
[2024-05-01] MEDS: Iopamidol 612 MG/ML 100 ML Bottle IVPUSH ONE (05:35)
[2024-05-01 05:37] LABS: BASOPHILS ABSOLUTE AUTO 0.1 K/mm3 (0.0-0.2); BASOPHILS PERCENT AUTO 0.4 % (0.0-1.0); EOSINOPHILS ABSOLUTE AUTO 0.2 K/mm3 (0.0-0.4); EOSINOPHILS PERCENT AUTO 1.2 % (0.0-6.0); HEMATOCRIT 44.9 % (37.0-47.0); IMMATURE GRAN ABSOLUTE AUTO 0.04 K/mm3 (0.00-0.05); IMMATURE GRAN PERCENT AUTO 0.3 % (0.0-0.4); LYMPHOCYTES ABSOLUTE AUTO 1.7 K/mm3 (1.0-4.8); LYMPHOCYTES PERCENT AUTO 13.4 % (24.0-44.0); MEAN CORPUSCULAR HEMOGLOBIN 31.6 pg (28.0-32.0); MEAN CORPUSCULAR HGB CONC 33.4 g/dl (32.0-36.0); MEAN CORPUSCULAR VOLUME 94.7 fl (83.0-99.0); MEAN PLATELET VOLUME 9.3 fl (9.4-12.3); MONOCYTES ABSOLUTE AUTO 0.6 K/mm3 (0.0-0.8); MONOCYTES PERCENT AUTO 5.1 % (0.0-8.0); NEUTROPHILS ABSOLUTE AUTO 9.9 K/mm3 (1.8-7.7); NEUTROPHILS PERCENT AUTO 79.6 % (41.0-71.0); PLATELET COUNT,PLT 446 K/mm3 (150-400); RED BLOOD CELL COUNT 4.74 M/mm3 (4.10-5.30); WHITE BLOOD CELL COUNT,WBC 12.43 K/mm3 (3.9-11.3)
[2024-05-01] MEDS: Metoclopramide 10 MG/2 ML SDV IVPUSH ONE (08:06)
[2024-05-01] MEDS: Hyoscyamine 0.125 MG Tab.SL SL ONE (08:06)
[2024-05-01] MEDS: Dicyclomine 10 MG Cap PO ONE (08:06)
[2024-05-01] MEDS: Magnesium Citrate Solution 296 ML Bottle PO ONE (08:07)
[2024-05-01 08:09] LABS: APPEARANCE,URINE CLEAR (Clear); BILIRUBIN,URINE NEGATIVE (Negative); COLOR,URINE YELLOW (Yellow); GLUCOSE,URINE 2+ (Negative); KETONES,URINE NEGATIVE (Negative); LEUKOCYTE ESTERASE,URINE NEGATIVE (Negative); NITRITE,URINE NEGATIVE (Negative); OCCULT BLOOD,URINE NEGATIVE (Negative); PROTEIN,URINE NEGATIVE (Negative); UROBILINOGEN,URINE 0.2 (0.2-1.0)
[2024-05-01 08:21] LABS: BACTERIA,URINE RARE /hpf (FEW); MUCUS,URINE NOT SEEN /hpf (FEW); RBC,URINE 0-5 /hpf (0-5); SQUAMOUS EPITHELIAL CELLS,UR 0-5 /hpf (0-5); WBC,URINE NOT SEEN /hpf (0-5)
[2024-05-01 10:19] VITALS: BP 127/96; PULSE 73
== END 2024-05-01 10:15 | disposition home or self-care (01) ==
LOC: JD.ED 04:39
DX: R07.89 Other chest pain (principal); K59.01 Slow transit constipation; I10 Essential (primary) hypertension; E80.0 Hereditary erythropoietic porphyria; J45.909 Unspecified asthma, uncomplicated; E66.9 Obesity, unspecified; F17.210 Nicotine dependence, cigarettes, uncomplicated; Z79.899 Other long term (current) drug therapy; R11.2 Nausea with vomiting, unspecified
CPT/HCPCS: 36415; 74177; 76705; 80053; 81001; 83690; 83735; 84484; 85025; 86140; 87428; 93005; 96361; 96374; 96375; 96376; 99285; A9270; J1171; J2405; J2765; J7030; Q9967

== ENCOUNTER 2024-05-02 12:19 | Emergency (ER) | payer MEDICARE, MEDICAID ==
[2024-05-02] MEDS ORDERED: Sodium Chloride 0.9% 10 ML Syringe FLUSH PRN (12:38)
[2024-05-02] MEDS: Sodium Chloride 0.9% 100 ML IV SCH (13:03)
[2024-05-02] MEDS: Iopamidol 755 Mg/ML 100 ML Bottle IVPUSH ONE (13:03)
[2024-05-02 13:30] LABS: BASOPHILS PERCENT AUTO 0.2 % (0.0-1.0); EOSINOPHILS ABSOLUTE AUTO 0.1 K/mm3 (0.0-0.4); EOSINOPHILS PERCENT AUTO 1.4 % (0.0-6.0); HEMATOCRIT 43.2 % (37.0-47.0); HEMOGLOBIN 14.2 gm/dl (12.0-16.0); IMMATURE GRAN ABSOLUTE AUTO 0.03 K/mm3 (0.00-0.05); IMMATURE GRAN PERCENT AUTO 0.3 % (0.0-0.4); LYMPHOCYTES ABSOLUTE AUTO 2.1 K/mm3 (1.0-4.8); LYMPHOCYTES PERCENT AUTO 20.6 % (24.0-44.0); MEAN CORPUSCULAR HEMOGLOBIN 31.8 pg (28.0-32.0); MEAN CORPUSCULAR HGB CONC 32.9 g/dl (32.0-36.0); MEAN CORPUSCULAR VOLUME 96.9 fl (83.0-99.0); MEAN PLATELET VOLUME 9.5 fl (9.4-12.3); MONOCYTES ABSOLUTE AUTO 0.7 K/mm3 (0.0-0.8); MONOCYTES PERCENT AUTO 6.9 % (0.0-8.0); NEUTROPHILS ABSOLUTE AUTO 7.2 K/mm3 (1.8-7.7); NEUTROPHILS PERCENT AUTO 70.6 % (41.0-71.0); PLATELET COUNT,PLT 436 K/mm3 (150-400); RED BLOOD CELL COUNT 4.46 M/mm3 (4.10-5.30); WHITE BLOOD CELL COUNT,WBC 10.15 K/mm3 (3.9-11.3)
[2024-05-02 13:36] LABS: PROTHROMBIN TIME 10.6 SECONDS (9.7-12.0)
[2024-05-02 13:38] LABS: PTT,PARTIAL THROMBOPLSTIN TIME 31.9 SECONDS (21.7-31.4)
[2024-05-02 13:43] LABS: A/G RATIO 0.8 (1-2); ALBUMIN 3.3 g/dl (3.4-5.0); BILIRUBIN TOTAL 0.4 mg/dL (0.2-1.0); BUN/CREATININE RATIO 15.5 (14-18); CALCIUM 8.7 mg/dL (8.5-10.1); CREATININE 1.1 mg/dL (0.55-1.02); EST CRCL DRUG DOSING (CG) 50.91 mL/min; PROTEIN TOTAL,TP 7.3 g/dl (6.4-8.2)
[2024-05-02] MEDS: Tenecteplase 50 MG Kit ONE (13:58)
[2024-05-02] MEDS: Sodium Chloride 0.9% 1,000 ML IV ONE (14:30)
[2024-05-02] MEDS: Tenecteplase 50 MG Kit IVPUSH ONE (16:32)
[2024-05-02] MEDS: Polyethylene Glycol 3350 Powder 17 GM Packet PO ONE (18:23)
[2024-05-02 18:32] VITALS: BP 148/58; PULSE 77
== END 2024-05-02 17:55 | disposition home or self-care (01) ==
LOC: JD.ED 12:19
DX: G45.9 Transient cerebral ischemic attack, unspecified (principal); K59.00 Constipation, unspecified; I10 Essential (primary) hypertension; E78.00 Pure hypercholesterolemia, unspecified; J45.909 Unspecified asthma, uncomplicated; E66.9 Obesity, unspecified; Z95.5 Presence of coronary angioplasty implant and graft; Z79.51 Long term (current) use of inhaled steroids; Z79.899 Other long term (current) drug therapy; Z68.38 Body mass index [BMI] 38.0-38.9, adult
CPT/HCPCS: 36415; 70450; 70496; 70498; 70551; 80053; 82947; 84484; 85025; 85610; 85730; 93005; 93246; 96360; 99285; J3490; J7030; Q9967; 93010; 99284

== ENCOUNTER 2024-05-04 16:47 | Emergency (ER) | payer MEDICARE, MEDICAID ==
[2024-05-04] MEDS: Sodium Chloride 0.9% 10 ML Syringe FLUSH ONE (18:05)
[2024-05-04] MEDS: Iopamidol 612 MG/ML 100 ML Bottle IVPUSH ONE (18:05)
[2024-05-04 18:13] LABS: BASOPHILS PERCENT AUTO 0.3 % (0.0-1.0); EOSINOPHILS ABSOLUTE AUTO 0.1 K/mm3 (0.0-0.4); EOSINOPHILS PERCENT AUTO 1.2 % (0.0-6.0); HEMATOCRIT 44.4 % (37.0-47.0); HEMOGLOBIN 15.7 gm/dl (12.0-16.0); IMMATURE GRAN ABSOLUTE AUTO 0.03 K/mm3 (0.00-0.05); IMMATURE GRAN PERCENT AUTO 0.3 % (0.0-0.4); LYMPHOCYTES ABSOLUTE AUTO 2.1 K/mm3 (1.0-4.8); LYMPHOCYTES PERCENT AUTO 17.1 % (24.0-44.0); MEAN CORPUSCULAR HEMOGLOBIN 31.6 pg (28.0-32.0); MEAN CORPUSCULAR HGB CONC 35.4 g/dl (32.0-36.0); MEAN CORPUSCULAR VOLUME 89.3 fl (83.0-99.0); MEAN PLATELET VOLUME 8.9 fl (9.4-12.3); MONOCYTES ABSOLUTE AUTO 0.7 K/mm3 (0.0-0.8); MONOCYTES PERCENT AUTO 5.4 % (0.0-8.0); NEUTROPHILS ABSOLUTE AUTO 9.1 K/mm3 (1.8-7.7); NEUTROPHILS PERCENT AUTO 75.7 % (41.0-71.0); PLATELET COUNT,PLT 469 K/mm3 (150-400); RED BLOOD CELL COUNT 4.97 M/mm3 (4.10-5.30); WHITE BLOOD CELL COUNT,WBC 11.99 K/mm3 (3.9-11.3)
[2024-05-04] MEDS: hydrALAZINE 20 MG/ML SDV IVPUSH ONE (18:28)
[2024-05-04] MEDS: Sodium Chloride 0.9% 1,000 ML IV ONE (18:31)
[2024-05-04 18:37] LABS: A/G RATIO 0.8 (1-2); ALBUMIN 3.6 g/dl (3.4-5.0); ANION GAP 13.8 (5-15); BILIRUBIN TOTAL 0.5 mg/dL (0.2-1.0); BUN/CREATININE RATIO 15.6 (14-18); C-REACTIVE PROTEIN 2.12 mg/dL (<0.30); CALCIUM 9.1 mg/dL (8.5-10.1); CREATININE 0.9 mg/dL (0.55-1.02); EST CRCL DRUG DOSING (CG) 54.99 mL/min; MAGNESIUM 1.8 mg/dL (1.8-2.4); POTASSIUM,K 3.8 mEq/L (3.5-5.1); PROTEIN TOTAL,TP 8.2 g/dl (6.4-8.2)
[2024-05-04] MEDS: Alum Hydrox/Mag Hydrox/Simeth 30 ML, Lidocaine 2% 15 ML PO ONE (19:44)
[2024-05-04] MEDS: Famotidine 20 MG/2 ML SDV IVPUSH ONE (19:44)
[2024-05-04] MEDS: Magnesium Citrate Solution 296 ML Bottle PO ONE (20:22)
[2024-05-05 00:21] VITALS: BP 182/116; PULSE 75
== END 2024-05-05 00:21 | disposition home or self-care (01) ==
LOC: JD.ED 16:47
DX: K59.00 Constipation, unspecified (principal); I10 Essential (primary) hypertension; E78.00 Pure hypercholesterolemia, unspecified; J45.909 Unspecified asthma, uncomplicated; E66.9 Obesity, unspecified; Z79.51 Long term (current) use of inhaled steroids; Z79.899 Other long term (current) drug therapy; Z68.41 Body mass index [BMI] 40.0-44.9, adult
CPT/HCPCS: 36415; 74177; 80053; 83735; 84484; 85025; 86140; 93005; 96361; 96374; 96375; 99284; A9270; J0360; J3490; J7030; Q9967; 93010